=== PATIENT | female | born 1975 | race Caucasian/White ===

== ENCOUNTER → 2016-10-05 | Outpatient (CLI) | payer OTHER, MEDICARE ==
[~2016-10-05] MED LIST: ACCU-CHEK1 EACH MC; CEFDINIR300 MG PO; GLUCERNA1 EACH GT; HUMALOG MI100 UNIT/1 SQ; HUMALOG100 UNIT/1 SQ; LANTUS SOL100 UNIT/1 SQ; LEVEMIR100 UNIT/1 SQ; LIDODERM PATCH 51 EA TD; PHENERGAN 12.12.5 M1 PO; PHENERGAN 25 MG25 M1 PO; PROMETHAZINE HC25 M1 PO; ZANAFLEX4 MG PO
[2016-10-05 13:59] LABS: HEMOGLOBIN 12.2 gm/dl (12.3-15.3); RED BLOOD COUNT 5.21 M/UL (4.00-5.10); WHITE BLOOD COUNT 9.8 K/UL (4.5-11.0)
[2016-10-05 14:07] LABS: BUN/CREATININE RATIO 27 (0-10)
== END ==
LOC: LAB 12:53
PROVIDERS: Family Medicine
DX: E10.65 Type 1 diabetes mellitus with hyperglycemia (principal); K31.84 Gastroparesis; K85.90 Acute pancreatitis without necrosis or infection, unspecified
CPT/HCPCS: 36415; 80053; 83690; 85027

== ENCOUNTER → 2020-06-13 | Outpatient (CLI) | payer BC, MEDICARE ==
[~2020-06-13] MED LIST changes: +ATIVAN 1MG TABLE1 MG PO; +ATORVASTATIN CA40 MG PO; +AUGMENTIN250 MG/5 M PO; +BASAGLAR K100 UNIT/1 SC; +CATAPRES 0.1MG0.1 MG PO; +CHRONULAC20 GM/30 M PO; +DIPHENHYDR50 MG/1 M1 INJ; +DIPHENHYDR50 MG/1 M1 IV; +DURAGESIC1 EAC3 TD; +HEPARIN LO IV; +HUMALOG100 UNIT/2 SC; +HYDROCODON-ACE1 EAC2 PO; +METOPROLOL TART25 MG PO; +NARCAN INH; +NEURONTIN 300300 MG PO; +NEURONTIN600 MG GT; +NOVOLOG100 UNIT/1 SQ; +PERCOCET 7.5-31 EACH PO; +PHENERGAN 12.12.5 MG PR; +PHENERGAN IM25 MG/ML IV; +PHENERGAN6.25 MG/5 PO; +PLAVIX 75 MG TA75 MG PO; +QUETIAPINE FUMA50 MG PO; +SENNA LAX8.6 MG PO; +SENOKOT8.6 MG PO; +SODIUM CL 0.91000 ML INJ; +TIZANIDINE HCL6 MG PO; +ZANAFLEX4 MG GT; -ZANAFLEX4 MG PO
== END ==
LOC: LAB 16:36
DX: Z20.822 Contact with and (suspected) exposure to COVID-19 (principal); E10.43 Type 1 diabetes mellitus with diabetic autonomic (poly)neuropathy
CPT/HCPCS: U0003

== ENCOUNTER 2020-07-18 19:46 | Emergency (ER) | payer BC ==
[~2020-07-18 19:46] MED LIST changes: -ATORVASTATIN CA40 MG PO; -BASAGLAR K100 UNIT/1 SC; -CATAPRES 0.1MG0.1 MG PO; -DIPHENHYDR50 MG/1 M1 IV; -HEPARIN LO IV; -HYDROCODON-ACE1 EAC2 PO; -METOPROLOL TART25 MG PO; -PERCOCET 7.5-31 EACH PO; -PHENERGAN IM25 MG/ML IV; -PLAVIX 75 MG TA75 MG PO; -QUETIAPINE FUMA50 MG PO; -SENNA LAX8.6 MG PO; -TIZANIDINE HCL6 MG PO
[2020-07-18 21:24] LABS: HEMOGLOBIN 9.7 gm/dl (12.3-15.3); RED BLOOD COUNT 3.79 M/UL (4.00-5.10); WHITE BLOOD COUNT 8.8 K/UL (4.5-11.0)
[2020-07-18 21:59] LABS: BUN/CREATININE RATIO 23 (0-10)
== END 2020-07-18 22:36 | disposition home or self-care (01) ==
LOC: ER1 19:46
PROVIDERS: Family Medicine
DX: R07.9 Chest pain, unspecified (principal); E11.43 Type 2 diabetes mellitus with diabetic autonomic (poly)neuropathy; K31.84 Gastroparesis; Z91.041 Radiographic dye allergy status; Z88.8 Allergy status to other drugs, medicaments and biological substances; Z88.5 Allergy status to narcotic agent; Z79.01 Long term (current) use of anticoagulants
CPT/HCPCS: 71045; 80053; 82550; 82553; 83874; 84484; 85025; 93005; 99285; J2997

== ENCOUNTER 2020-11-04 12:40 | Inpatient (IN) | payer BC ==
[~2020-11-04] VITALS: Ht 152.4 cm; Wt 74.8 kg
[2020-11-04 13:21] LABS: HEMOGLOBIN 12.8 gm/dl (12.3-15.3); RED BLOOD COUNT 4.94 M/UL (4.00-5.10); WHITE BLOOD COUNT 16.3 K/UL (4.5-11.0)
[2020-11-04 13:43] LABS: BUN/CREATININE RATIO 22 (0-10)
[2020-11-04] MEDS ORDERED: TIZANIDINE HCL6 MG PO (15:33)
[2020-11-04] MEDS ORDERED: DIPHENHYDR50 MG/1 M1 IV (15:33)
[2020-11-04] MEDS ORDERED: PHENERGAN IM25 MG/ML IV (15:34)
[2020-11-04] MEDS ORDERED: METOPROLOL TART25 MG PO (15:35)
[2020-11-04] MEDS ORDERED: QUETIAPINE FUMA50 MG PO (15:36)
[2020-11-04] MEDS ORDERED: BASAGLAR K100 UNIT/1 SC (15:36)
[2020-11-04] MEDS ORDERED: ATORVASTATIN CA40 MG PO ×2 (15:38→15:42)
[2020-11-04] MEDS ORDERED: PLAVIX 75 MG TA75 MG PO (15:40)
[2020-11-04] MEDS ORDERED: HEPARIN LO IV (15:46)
--- NOTE | 2020-11-04 17:38 | NUR ---
PT ARRIVED TO ROOM 6103 AT 17:38, HR IN THE 140'S, BARREL ROLLER STATES MD ANN, PT ON BSC AT THIS TIME
[2020-11-05 07:25] LABS: HEMOGLOBIN 12.2 gm/dl (12.3-15.3); RED BLOOD COUNT 4.74 M/UL (4.00-5.10)
[2020-11-05 07:56] LABS: BUN/CREATININE RATIO 17 (0-10)
[2020-11-06 02:32] LABS: HEMOGLOBIN 9.4 gm/dl (12.3-15.3); RED BLOOD COUNT 3.68 M/UL (4.00-5.10); WHITE BLOOD COUNT 6.8 K/UL (4.5-11.0)
[2020-11-06 02:46] LABS: BUN/CREATININE RATIO 19 (0-10)
--- NOTE | 2020-11-07 10:47 | NUR ---
HAD LONG DISCUSSION WITH PATIENT CONCERNING PAIN MEDICATION. PT IS APPROACHING DC AND CONTINUES TO TAKE DILAUDID. EXPLAINED TO PATIENT THE NEED TO TRY PO PAIN MEDS PRIOR TO DC TO KNOW IF THEY ARE EFFECTIVE FOR HER PAIN. PATIENT BECAME VERY UPSET AND INSISTED ON KEEPING IV PAIN MEDICATIONS. ONCE AGAIN EXPLAINED TO PATIENT THAT SHE CAN NOT TAKE IV PAIN MEDICATION AT HOME AND THE IMPORTANCE OF FINDING A PO PAIN MEDICATION THAT WILL WORK AT HOME FOR HER. MD MADE AWARE OF IV PAIN MEDICATION AND POSSIBLE DC TOMORROW OR MONDAY. IV MEDICATION DC'D AND PO MEDS ORDERED.
--- NOTE | 2020-11-07 14:35 | NUR ---
PT REQUESTING PAIN MEDICATION. HYDROCODONE TAKEN INTO ROOM PER NEW ORDER. PT UPSET AND REFUSING TO TAKE MEDICATION. EXPLAINED, AGAIN, THE NEED TO TRY PO MEDICATIONS PRIOR TO DC TO MAKE SURE THAT THE MEDICATION WILL MANAGE HER PAIN. PT AGREED TO TAKE MEDICATION. SHE STATES THAT "IT WON'T WORK" BUT WILL TAKE IT TO "PROVE THAT IT WON'T"
[2020-11-09 06:04] LABS: HEMOGLOBIN 10.9 gm/dl (12.3-15.3); RED BLOOD COUNT 4.19 M/UL (4.00-5.10); WHITE BLOOD COUNT 5.1 K/UL (4.5-11.0)
[2020-11-09 06:34] LABS: BUN/CREATININE RATIO 29 (0-10)
[2020-11-10] MEDS ORDERED: HYDROCODON-ACE1 EAC2 PO (11:52)
[2020-11-10] MEDS ORDERED: SENNA LAX8.6 MG PO (11:52)
[2020-11-10] MEDS ORDERED: CATAPRES 0.1MG0.1 MG PO (11:52)
[2020-11-10] MEDS ORDERED: PERCOCET 7.5-31 EACH PO (11:55)
== END 2020-11-10 16:34 | disposition home or self-care (01) | DRG 74 ==
LOC: ER1 12:40 → MED SURG 4 15:16 → CDU 15:16 → PROG CARE 18:00 → MED SURG 4 11-06 16:31
PROVIDERS: Emergency Medicine; Physician Assistant Medical; ADMIT Internal Medicine
DX: E10.43 Type 1 diabetes mellitus with diabetic autonomic (poly)neuropathy (principal); I50.22 Chronic systolic (congestive) heart failure; R65.10 Systemic inflammatory response syndrome (SIRS) of non-infectious origin without acute organ dysfunction; F11.93 Opioid use, unspecified with withdrawal; I13.0 Hypertensive heart and chronic kidney disease with heart failure and stage 1 through stage 4 chronic kidney disease, or unspecified chronic kidney disease; K86.1 Other chronic pancreatitis; K31.84 Gastroparesis; R00.0 Tachycardia, unspecified; K59.00 Constipation, unspecified; G40.909 Epilepsy, unspecified, not intractable, without status epilepticus; G89.29 Other chronic pain; N18.9 Chronic kidney disease, unspecified; D72.829 Elevated white blood cell count, unspecified; R07.9 Chest pain, unspecified; D50.9 Iron deficiency anemia, unspecified; Z90.49 Acquired absence of other specified parts of digestive tract; Z95.0 Presence of cardiac pacemaker; Z79.4 Long term (current) use of insulin; Z90.710 Acquired absence of both cervix and uterus; Z88.6 Allergy status to analgesic agent; Z91.09 Other allergy status, other than to drugs and biological substances; Z80.1 Family history of malignant neoplasm of trachea, bronchus and lung; Z80.41 Family history of malignant neoplasm of ovary
CPT/HCPCS: 36415; 70450; 71045; 80048; 80053; 81001; 82550; 82553; 82962; 83036; 83605; 83690; 83735; 83874; 83880; 84439; 84443; 84484; 85025; 85027; 85610; 85730; 87040; 93005; 96374; 96375; 96376; 97116-GP-CQ; 97161; 99285; J0360; J0692; J1170; J1200; J1642; J1644; J1650; J1940; J2550; J7030; U0002

== ENCOUNTER → 2020-12-29 | Outpatient (CLI) | payer BC, MEDICARE ==
[~2020-12-29] MED LIST changes: +ATORVASTATIN CA40 MG PO; +AUGMENTIN 875-1 EACH PO; +BASAGLAR K100 UNIT/1 SC; +CATAPRES 0.1MG0.1 MG PO; +DIPHENHYDR IV; +DIPHENHYDR50 MG/1 M1 IV; +EPIFOAM FOAM10 GM TOP; +HEPARIN LO IV; +HYDROCODON-ACE1 EAC2 PO; +HYDROCODON-ACE1 EAC4 PEG; +LIPITOR40 MG PO; +MAGNESIUM CITR296 ML PO; +METOPROLOL TART25 MG PO; +MIRALAX17 GM PO; +MYCOSTATIN100000 UTS PO; +PERCOCET 7.5-31 EACH PO; +PHENERGAN IM25 MG/ML IV; +PLAVIX 75 MG TA75 MG PO; +QUETIAPINE FUMA50 MG PO; +SENNA LAX8.6 MG PO; +SENNA8.6 MG PO; +SODIUM CL 0.91000 ML IV; +TIZANIDINE HCL6 MG PO
== END ==
LOC: OPSV 12:00
DX: R11.2 Nausea with vomiting, unspecified (principal); K31.84 Gastroparesis
CPT/HCPCS: G0463

== ENCOUNTER 2021-01-03 07:49 | Inpatient (IN) | payer BC, MEDICARE ==
[~2021-01-03] VITALS: Ht 165.1 cm; Wt 77.1 kg
[~2021-01-03 07:49] MED LIST changes: -AUGMENTIN 875-1 EACH PO; -DIPHENHYDR IV; -EPIFOAM FOAM10 GM TOP; -HYDROCODON-ACE1 EAC4 PEG; -LIPITOR40 MG PO; -MAGNESIUM CITR296 ML PO; -MIRALAX17 GM PO; -MYCOSTATIN100000 UTS PO; -SENNA8.6 MG PO; -SODIUM CL 0.91000 ML IV
[2021-01-03 09:38] LABS: HEMOGLOBIN 12.4 gm/dl (12.3-15.3); RED BLOOD COUNT 4.66 M/UL (4.00-5.10); WHITE BLOOD COUNT 12.9 K/UL (4.5-11.0)
[2021-01-03 09:57] LABS: BUN/CREATININE RATIO 22 (0-10)
[2021-01-04 02:52] LABS: HEMOGLOBIN 10.8 gm/dl (12.3-15.3); WHITE BLOOD COUNT 14.4 K/UL (4.5-11.0)
[2021-01-04 02:56] LABS: RED BLOOD COUNT 4.07 M/UL (4.00-5.10)
[2021-01-04 03:17] LABS: BUN/CREATININE RATIO 16 (0-10)
[2021-01-04] MEDS ORDERED: DIPHENHYDR IV (16:05)
[2021-01-04] MEDS ORDERED: PHENERGAN IM25 MG/ML IV (16:06)
[2021-01-04] MEDS ORDERED: SODIUM CL 0.91000 ML IV (16:09)
[2021-01-04] MEDS ORDERED: CATAPRES 0.1MG0.1 MG PO (16:10)
[2021-01-04] MEDS ORDERED: SENNA8.6 MG PO (16:10)
[2021-01-04] MEDS ORDERED: LIPITOR40 MG PO (16:11)
[2021-01-04] MEDS ORDERED: MIRALAX17 GM PO (16:12)
[2021-01-04] MEDS ORDERED: CHRONULAC20 GM/30 M PO (16:13)
[2021-01-04] MEDS ORDERED: MAGNESIUM CITR296 ML PO (16:13)
[2021-01-04] MEDS ORDERED: MYCOSTATIN100000 UTS PO (16:15)
--- NOTE | 2021-01-05 06:43 | NUR ---
PATIENT APPEARS VERY ANXIOUS AND HAS GENERALIZED SHAKING. SHE REPORTS SHE IS IN ALOT OF PAIN, AND IS SICK TO HER STOMACH. PAIN MEDS GIVEN, PHENERGAN GIVEN, AND BP NOTED TO BE HIGH ON MONITOR. CHECKED BP MANUALLY 160/100. GAVE CLONIDINE PER SCHEDULE AND PRN HYDRALAZINE. NOTIFIED MT TOMPKINS OF PTS BP.
[2021-01-05 09:42] LABS: HEMOGLOBIN 9.6 gm/dl (12.3-15.3)
[2021-01-05 09:51] LABS: RED BLOOD COUNT 3.63 M/UL (4.00-5.10); WHITE BLOOD COUNT 7.3 K/UL (4.5-11.0)
[2021-01-05 10:20] LABS: BUN/CREATININE RATIO 22 (0-10)
[2021-01-06 03:20] LABS: HEMOGLOBIN 8.5 gm/dl (12.3-15.3); WHITE BLOOD COUNT 5.7 K/UL (4.5-11.0)
[2021-01-06 03:23] LABS: RED BLOOD COUNT 3.16 M/UL (4.00-5.10)
[2021-01-06 03:47] LABS: BUN/CREATININE RATIO 15 (0-10)
[2021-01-07 03:01] LABS: WHITE BLOOD COUNT 7.1 K/UL (4.5-11.0)
[2021-01-07 03:06] LABS: RED BLOOD COUNT 4.13 M/UL (4.00-5.10)
[2021-01-07 03:36] LABS: BUN/CREATININE RATIO 14 (0-10)
[2021-01-08 03:47] LABS: BUN/CREATININE RATIO 17 (0-10)
[2021-01-09 03:36] LABS: HEMOGLOBIN 9.6 gm/dl (12.3-15.3); RED BLOOD COUNT 3.73 M/UL (4.00-5.10); WHITE BLOOD COUNT 5.5 K/UL (4.5-11.0)
[2021-01-09 03:58] LABS: BUN/CREATININE RATIO 14 (0-10)
[2021-01-10 08:43] LABS: BUN/CREATININE RATIO 28 (0-10)
[2021-01-10] MEDS ORDERED: HYDROCODON-ACE1 EAC4 PEG (13:04)
[2021-01-10] MEDS ORDERED: AUGMENTIN 875-1 EACH PO (13:04)
[2021-01-10] MEDS ORDERED: EPIFOAM FOAM10 GM TOP (13:04)
[2021-01-10] MEDS ORDERED: BASAGLAR K100 UNIT/1 SC (13:04)
== END 2021-01-10 17:25 | disposition home or self-care (01) | DRG 871 ==
LOC: ER1 07:49 → CDU 10:55 → PROG CARE 10:55 → MED SURG 4 01-08 17:59
PROVIDERS: Emergency Medicine; Internal Medicine; Physician Assistant; ADMIT Internal Medicine
DX: A41.9 Sepsis, unspecified organism (principal); E43 Unspecified severe protein-calorie malnutrition; E87.2 Acidosis; K86.1 Other chronic pancreatitis; I13.0 Hypertensive heart and chronic kidney disease with heart failure and stage 1 through stage 4 chronic kidney disease, or unspecified chronic kidney disease; Z20.822 Contact with and (suspected) exposure to COVID-19; E10.43 Type 1 diabetes mellitus with diabetic autonomic (poly)neuropathy; I25.10 Atherosclerotic heart disease of native coronary artery without angina pectoris; N18.9 Chronic kidney disease, unspecified; I16.0 Hypertensive urgency; I50.9 Heart failure, unspecified; K64.9 Unspecified hemorrhoids; E86.0 Dehydration; G40.909 Epilepsy, unspecified, not intractable, without status epilepticus; E87.8 Other disorders of electrolyte and fluid balance, not elsewhere classified; K04.7 Periapical abscess without sinus; K31.84 Gastroparesis; E10.22 Type 1 diabetes mellitus with diabetic chronic kidney disease; K02.9 Dental caries, unspecified; K59.00 Constipation, unspecified; Z79.02 Long term (current) use of antithrombotics/antiplatelets; Z68.28 Body mass index [BMI] 28.0-28.9, adult; I25.2 Old myocardial infarction; Z88.6 Allergy status to analgesic agent; Z88.8 Allergy status to other drugs, medicaments and biological substances; Z90.49 Acquired absence of other specified parts of digestive tract; Z90.710 Acquired absence of both cervix and uterus; Z80.9 Family history of malignant neoplasm, unspecified; Z79.4 Long term (current) use of insulin
CPT/HCPCS: 36415; 71045; 80048; 80053; 81001; 82009; 82550; 82553; 82962; 83605; 83690; 83735; 83874; 84100; 84439; 84443; 84484; 85025; 85027; 87040; 87086; 93005; 96374; 96375; 96376; 97110; 97116; 97116-GP-CQ; 97161; 99285; J0360; J1170; J1200; J1642; J2543; J2550; J7030; U0002

== ENCOUNTER → 2021-01-22 | Outpatient (CLI) | payer BC, MEDICARE ==
[~2021-01-22] MED LIST changes: +AUGMENTIN 875-1 EACH PO; +DIPHENHYDR IV; +EPIFOAM FOAM10 GM TOP; +HYDROCODON-ACE1 EAC4 PEG; +LIPITOR40 MG PO; +MAGNESIUM CITR296 ML PO; +MIRALAX17 GM PO; +MYCOSTATIN100000 UTS PO; +SENNA8.6 MG PO; +SODIUM CL 0.91000 ML IV
== END ==
LOC: OPSV 12:00
DX: R11.2 Nausea with vomiting, unspecified (principal); K31.84 Gastroparesis
CPT/HCPCS: G0463

== ENCOUNTER 2021-02-11 13:42 | Emergency (ER) | payer BC, MEDICARE ==
[2021-02-11 16:20] LABS: RED BLOOD COUNT 4.65 M/UL (4.00-5.10); WHITE BLOOD COUNT 5.8 K/UL (4.5-11.0)
[2021-02-11 16:39] LABS: BUN/CREATININE RATIO 15 (0-10)
== END 2021-02-12 00:35 | disposition home or self-care (01) ==
LOC: ER1 13:42
PROVIDERS: Physician Assistant
DX: U07.1 COVID-19 (principal); K94.23 Gastrostomy malfunction; E10.9 Type 1 diabetes mellitus without complications; I10 Essential (primary) hypertension; Z90.710 Acquired absence of both cervix and uterus; Z79.899 Other long term (current) drug therapy; Z90.49 Acquired absence of other specified parts of digestive tract
CPT/HCPCS: 80053; 81001; 83690; 85025; 96374; 96375; 96376; 99284; J1170; J1200; J2550; J7120; Q9967; U0002

== ENCOUNTER 2021-02-15 12:29 | Emergency (ER) | payer BC, MEDICARE ==
[2021-02-15 15:05] LABS: HEMOGLOBIN 12.4 gm/dl (12.3-15.3); RED BLOOD COUNT 4.91 M/UL (4.00-5.10); WHITE BLOOD COUNT 6.9 K/UL (4.5-11.0)
[2021-02-15 15:25] LABS: BUN/CREATININE RATIO 19 (0-10)
== END 2021-02-19 16:39 | disposition home or self-care (01) ==
LOC: ER1 12:29
PROVIDERS: Physician Assistant
DX: U07.1 COVID-19 (principal); E11.43 Type 2 diabetes mellitus with diabetic autonomic (poly)neuropathy; K31.84 Gastroparesis; I25.2 Old myocardial infarction; I11.0 Hypertensive heart disease with heart failure; I50.9 Heart failure, unspecified; Z88.5 Allergy status to narcotic agent; Z91.041 Radiographic dye allergy status; Z88.6 Allergy status to analgesic agent; Z90.49 Acquired absence of other specified parts of digestive tract
CPT/HCPCS: 71045; 80053; 81001; 82962; 85025; 96374; 96375; 96376; 99285; C9113; J1170; J1200; J1642; J2550

== ENCOUNTER → 2021-03-15 | Outpatient (CLI) | payer BC, MEDICARE | LOC: OPSV 15:00 | DX: K31.84 Gastroparesis (principal); R11.2 Nausea with vomiting, unspecified | CPT/HCPCS: 96523 ==

== ENCOUNTER 2021-04-24 16:53 | Inpatient (IN) | payer BC, MEDICARE ==
[~2021-04-24] VITALS: Ht 165.1 cm; Wt 74.8 kg
[2021-04-24 17:32] LABS: HEMOGLOBIN 12.2 gm/dl (12.3-15.3); RED BLOOD COUNT 4.64 M/UL (4.00-5.10); WHITE BLOOD COUNT 11.9 K/UL (4.5-11.0)
[2021-04-24 17:56] LABS: BUN/CREATININE RATIO 15 (0-10)
[2021-04-25] MEDS ORDERED: TRANSDERM-SCOP1 EACH TOP (00:02)
[2021-04-25 04:32] LABS: HEMOGLOBIN 10.8 gm/dl (12.3-15.3); RED BLOOD COUNT 4.18 M/UL (4.00-5.10)
[2021-04-25 04:34] LABS: WHITE BLOOD COUNT 8.2 K/UL (4.5-11.0)
[2021-04-25 04:46] LABS: BUN/CREATININE RATIO 13 (0-10)
[2021-04-26 11:09] LABS: HEMOGLOBIN 8.9 gm/dl (12.3-15.3)
[2021-04-26 11:16] LABS: RED BLOOD COUNT 3.51 M/UL (4.00-5.10); WHITE BLOOD COUNT 4.4 K/UL (4.5-11.0)
[2021-04-26 11:33] LABS: BUN/CREATININE RATIO 14 (0-10)
[2021-04-27 06:45] LABS: HEMOGLOBIN 8.4 gm/dl (12.3-15.3); RED BLOOD COUNT 3.38 M/UL (4.00-5.10); WHITE BLOOD COUNT 4.9 K/UL (4.5-11.0)
[2021-04-27 07:04] LABS: BUN/CREATININE RATIO 16 (0-10)
[2021-04-30 11:25] LABS: HEMOGLOBIN 9.5 gm/dl (12.3-15.3); RED BLOOD COUNT 3.67 M/UL (4.00-5.10); WHITE BLOOD COUNT 6.2 K/UL (4.5-11.0)
[2021-04-30 11:44] LABS: BUN/CREATININE RATIO 14 (0-10)
[2021-05-01 02:16] LABS: HEMOGLOBIN 9.9 gm/dl (12.3-15.3); RED BLOOD COUNT 3.88 M/UL (4.00-5.10); WHITE BLOOD COUNT 6.7 K/UL (4.5-11.0)
[2021-05-01 02:40] LABS: BUN/CREATININE RATIO 17 (0-10)
[2021-05-01 10:37] LABS: HEMOGLOBIN 9.7 gm/dl (12.3-15.3)
--- NOTE | 2021-05-01 18:27 | NUR ---
PATIENT NOTED TO BE THROWING UP VERY THICK EMESIS INTO BASIN WITH SOME BLOOD NOTED. RN NOTIFIED MD, NO NEW ORDERS NOTED AT PRESENT. PRN ANTIHISTAMINE ADMINISTERED WELL IV PAIN MEDICATIONS. BED LOCKED AND LOW. CALL LIGHT WITHIN REACH.
[2021-05-02 07:09] LABS: HEMOGLOBIN 9.6 gm/dl (12.3-15.3); RED BLOOD COUNT 3.75 M/UL (4.00-5.10); WHITE BLOOD COUNT 6.3 K/UL (4.5-11.0)
[2021-05-02 07:40] LABS: BUN/CREATININE RATIO 19 (0-10)
[2021-05-04 09:30] LABS: HEMOGLOBIN 9.7 gm/dl (12.3-15.3); RED BLOOD COUNT 3.83 M/UL (4.00-5.10)
[2021-05-04 10:02] LABS: BUN/CREATININE RATIO 19 (0-10)
--- NOTE | 2021-05-04 14:32 | NUR ---
RIAZ'Alicia ISOLATION PER PROVIDER AND MAYA REYES. PATIENT HAS NO COVID SYMPTOMS, AND HAD BEEN DIAGNOSED IN .
[2021-05-06 07:13] LABS: HEMOGLOBIN 9.5 gm/dl (12.3-15.3); RED BLOOD COUNT 3.72 M/UL (4.00-5.10); WHITE BLOOD COUNT 6.5 K/UL (4.5-11.0)
[2021-05-06 07:29] LABS: BUN/CREATININE RATIO 23 (0-10)
[2021-05-07] MEDS ORDERED: AUGMENTIN600 MG/5 M PO (15:46)
== END 2021-05-07 17:18 | disposition home or self-care (01) | DRG 872 ==
LOC: ER1 16:53 → CDU 22:29 → MED SURG 4 22:29
PROVIDERS: Internal Medicine; Student in an Organized Health Care Education/Training Program; ADMIT Internal Medicine
DX: A41.9 Sepsis, unspecified organism (principal); Z20.822 Contact with and (suspected) exposure to COVID-19; D62 Acute posthemorrhagic anemia; K92.2 Gastrointestinal hemorrhage, unspecified; N39.0 Urinary tract infection, site not specified; K04.7 Periapical abscess without sinus; G40.909 Epilepsy, unspecified, not intractable, without status epilepticus; E10.43 Type 1 diabetes mellitus with diabetic autonomic (poly)neuropathy; K31.84 Gastroparesis; F11.10 Opioid abuse, uncomplicated; K02.9 Dental caries, unspecified; K59.00 Constipation, unspecified; I10 Essential (primary) hypertension; E86.0 Dehydration; G89.4 Chronic pain syndrome; I16.0 Hypertensive urgency; Z79.4 Long term (current) use of insulin; Z51.5 Encounter for palliative care; I25.2 Old myocardial infarction; Z88.8 Allergy status to other drugs, medicaments and biological substances; Z88.6 Allergy status to analgesic agent; Z88.1 Allergy status to other antibiotic agents; Z91.041 Radiographic dye allergy status; Z88.5 Allergy status to narcotic agent; Z90.49 Acquired absence of other specified parts of digestive tract; Z95.0 Presence of cardiac pacemaker; Z80.41 Family history of malignant neoplasm of ovary
CPT/HCPCS: 36415; 70486; 70490; 71045; 80048; 80053; 81001; 82550; 82553; 82962; 83605; 83735; 83874; 83880; 84484; 85014; 85018; 85025; 85027; 85379; 86140; 87040; 93005; 96372; 96374; 96375; 96376; 97161; 99285; C9113; G0378; J0696; J1170; J1200; J1642; J1650; J1940; J2550; J7030; J7050; Q9967; U0002

== ENCOUNTER 2021-05-20 12:18 | Observation (INO) | payer BC, MEDICARE ==
[~2021-05-20] VITALS: Ht 165.1 cm; Wt 74.8 kg
[~2021-05-20 12:18] MED LIST changes: +AUGMENTIN600 MG/5 M PO; +TRANSDERM-SCOP1 EACH TOP
[2021-05-20 13:49] LABS: HEMOGLOBIN 11.5 gm/dl (12.3-15.3); RED BLOOD COUNT 4.51 M/UL (4.00-5.10); WHITE BLOOD COUNT 9.7 K/UL (4.5-11.0)
[2021-05-20 14:07] LABS: BUN/CREATININE RATIO 21 (0-10)
[2021-05-20] MEDS ORDERED: DIPHENHYDR50 MG/1 M1 INJ (17:53)
[2021-05-20] MEDS ORDERED: DIPHENHYDR50 MG/1 ML INJ (17:55)
[2021-05-21 06:23] LABS: HEMOGLOBIN 9.7 gm/dl (12.3-15.3); WHITE BLOOD COUNT 7.3 K/UL (4.5-11.0)
[2021-05-21 06:24] LABS: RED BLOOD COUNT 3.87 M/UL (4.00-5.10)
[2021-05-21 06:50] LABS: BUN/CREATININE RATIO 16 (0-10)
== END 2021-05-21 17:26 | disposition hospice, inpatient (51) ==
LOC: ER1 12:18 → CDU 16:01 → MED SURG 4 17:09
PROVIDERS: Physician Assistant Medical; Preventive Medicine Occupational Medicine; ADMIT Internal Medicine
DX: E10.43 Type 1 diabetes mellitus with diabetic autonomic (poly)neuropathy (principal); K31.84 Gastroparesis; K59.00 Constipation, unspecified; I16.0 Hypertensive urgency; G40.909 Epilepsy, unspecified, not intractable, without status epilepticus; I10 Essential (primary) hypertension; G89.4 Chronic pain syndrome; I25.2 Old myocardial infarction; Z20.822 Contact with and (suspected) exposure to COVID-19; Z87.19 Personal history of other diseases of the digestive system; Z93.1 Gastrostomy status; Z88.5 Allergy status to narcotic agent; Z88.6 Allergy status to analgesic agent; Z88.8 Allergy status to other drugs, medicaments and biological substances; Z91.041 Radiographic dye allergy status; Z91.19 Patient's noncompliance with other medical treatment and regimen; Z79.02 Long term (current) use of antithrombotics/antiplatelets; Z79.899 Other long term (current) drug therapy; Z87.891 Personal history of nicotine dependence
CPT/HCPCS: 36415; 71045; 80048; 80053; 80307; 81001; 82009; 82962; 83690; 83735; 85025; 85027; 85610; 85652; 85730; 86140; 87086; 93005; 96374; 96375; 96376; 99285; C9113; G0378; J0780; J1170; J1200; J2550; U0002

== ENCOUNTER → 2021-05-25 | Outpatient (CLI) | payer BC, MEDICARE ==
[~2021-05-25] MED LIST changes: +DIPHENHYDR50 MG/1 ML INJ
== END ==
LOC: OPSV 12:59
DX: Z45.2 Encounter for adjustment and management of vascular access device (principal); K31.84 Gastroparesis; R11.2 Nausea with vomiting, unspecified
CPT/HCPCS: 96523

== ENCOUNTER 2021-06-16 15:44 | Inpatient (IN) | payer BC, MEDICARE ==
[~2021-06-16] VITALS: Ht 165.1 cm; Wt 74.8 kg
[~2021-06-16 15:44] MED LIST changes: -DIPHENHYDR50 MG/1 ML INJ
[2021-06-16 18:54] LABS: HEMOGLOBIN 11.1 gm/dl (12.3-15.3); RED BLOOD COUNT 4.45 M/UL (4.00-5.10); WHITE BLOOD COUNT 7.3 K/UL (4.5-11.0)
[2021-06-16 19:13] LABS: BUN/CREATININE RATIO 18 (0-10)
[2021-06-17] MEDS ORDERED: DIPHENHYDR50 MG/1 ML INJ (17:55)
[2021-06-17] MEDS ORDERED: ZANAFLEX4 MG PO (19:30)
[2021-06-18 05:09] LABS: HEMOGLOBIN 9.6 gm/dl (12.3-15.3)
[2021-06-18 05:21] LABS: BUN/CREATININE RATIO 12 (0-10)
[2021-06-18 05:38] LABS: RED BLOOD COUNT 3.89 M/UL (4.00-5.10); WHITE BLOOD COUNT 9.5 K/UL (4.5-11.0)
== END 2021-06-18 14:00 | disposition home or self-care (01) | DRG 74 ==
LOC: ER1 15:44 → CDU 06-17 02:19 → 3 EAST 06-17 14:49
PROVIDERS: Internal Medicine; Physician Assistant; ADMIT Internal Medicine
DX: E11.43 Type 2 diabetes mellitus with diabetic autonomic (poly)neuropathy (principal); K31.84 Gastroparesis; G40.909 Epilepsy, unspecified, not intractable, without status epilepticus; K04.7 Periapical abscess without sinus; K59.00 Constipation, unspecified; G89.29 Other chronic pain; Z20.822 Contact with and (suspected) exposure to COVID-19; I50.9 Heart failure, unspecified; I25.2 Old myocardial infarction; Z90.710 Acquired absence of both cervix and uterus; Z90.49 Acquired absence of other specified parts of digestive tract; Z98.890 Other specified postprocedural states; Z88.8 Allergy status to other drugs, medicaments and biological substances; Z51.5 Encounter for palliative care; Z95.1 Presence of aortocoronary bypass graft
CPT/HCPCS: 36415; 80053; 81001; 82150; 82962; 83036; 83605; 83690; 83735; 84100; 85025; 87040; 96374; 96375; 96376; 99285; G0378; J1170; J1200; J1642; J1650; J2212; J2550; J2997; J3010; J7030; U0002

== ENCOUNTER 2021-07-11 13:22 | Inpatient (IN) | payer BC, MEDICARE ==
[~2021-07-11] VITALS: Ht 195.6 cm; Wt 72.6 kg
[~2021-07-11 13:22] MED LIST changes: +DIPHENHYDR50 MG/1 ML INJ; +ZANAFLEX4 MG PO
[2021-07-11 16:51] LABS: RED BLOOD COUNT 4.43 M/UL (4.00-5.10); WHITE BLOOD COUNT 11.2 K/UL (4.5-11.0)
[2021-07-11 17:04] LABS: BUN/CREATININE RATIO 18 (0-10)
[2021-07-12 04:22] LABS: HEMOGLOBIN 10.5 gm/dl (12.3-15.3); RED BLOOD COUNT 4.22 M/UL (4.00-5.10)
[2021-07-12 04:54] LABS: WHITE BLOOD COUNT 17.4 K/UL (4.5-11.0)
[2021-07-12 04:57] LABS: BUN/CREATININE RATIO 19 (0-10)
[2021-07-12] MEDS ORDERED: DIPHENHYDR50 MG/1 M1 IV (12:12)
[2021-07-12] MEDS ORDERED: ZANAFLEX 4 MG TA4 MG PO (12:13)
[2021-07-12] MEDS ORDERED: OMEPRAZOLE20 MG PO (12:14)
[2021-07-14 04:27] LABS: HEMOGLOBIN 8.7 gm/dl (12.3-15.3)
[2021-07-14 04:42] LABS: RED BLOOD COUNT 3.62 M/UL (4.00-5.10); WHITE BLOOD COUNT 7.2 K/UL (4.5-11.0)
[2021-07-14 05:12] LABS: BUN/CREATININE RATIO 29 (0-10)
--- NOTE | 2021-07-14 19:14 | NUR ---
called ct results to dr goodman. no new orders noted. will continue to monitor.
--- NOTE | 2021-07-14 23:33 | NUR ---
BP: 84/52. NOTIFIED MD AND RECIEVED ORDERS. WILL CONTINUE TO MONITOR.
--- NOTE | 2021-07-15 14:17 | NUR ---
1317-PT REPORTED TO NURSE AND TECH THAT HER WAS VERBALLY ABUSIVE AT TIMES. STATES SHE DID NOT WANT TO TALK ABOUT IT AND WANTED TO GO HOME AT TIME OF DISCHARGE. PT STATES SHE DOES NOT WANT REPORTED.
--- NOTE | 2021-07-16 16:22 | NUR ---
1623-NOTIFIED CRITICAL GLUCOSE 443. DR DUNHAM ORDERED 10 UNITS HUMALOG
[2021-07-19 08:26] LABS: HEMOGLOBIN 10.3 gm/dl (12.3-15.3); RED BLOOD COUNT 4.17 M/UL (4.00-5.10); WHITE BLOOD COUNT 5.9 K/UL (4.5-11.0)
[2021-07-19 09:03] LABS: BUN/CREATININE RATIO 20 (0-10)
[2021-07-20 12:54] LABS: HEMOGLOBIN 9.8 gm/dl (12.3-15.3)
[2021-07-20 12:57] LABS: WHITE BLOOD COUNT 7.6 K/UL (4.5-11.0)
[2021-07-20 13:13] LABS: BUN/CREATININE RATIO 23 (0-10)
[2021-07-21 09:21] LABS: HEMOGLOBIN 9.5 gm/dl (12.3-15.3); RED BLOOD COUNT 3.89 M/UL (4.00-5.10)
[2021-07-21 09:22] LABS: WHITE BLOOD COUNT 15.3 K/UL (4.5-11.0)
[2021-07-21 09:46] LABS: BUN/CREATININE RATIO 24 (0-10)
--- NOTE | 2021-07-22 05:44 | NUR ---
PER PT REQUEST, ICE PACK GIVEN AT 0200 07/22/21 AND THEN A SECOND ICE PACK GIVEN AT 0540 07/22/21. PT USING ON STOMACH FOR RELIEF. DAYSHIFT WILL BE MADE AWARE.
[2021-07-22 05:48] LABS: HEMOGLOBIN 8.9 gm/dl (12.3-15.3); RED BLOOD COUNT 3.65 M/UL (4.00-5.10); WHITE BLOOD COUNT 12.7 K/UL (4.5-11.0)
[2021-07-22 06:07] LABS: BUN/CREATININE RATIO 21 (0-10)
[2021-07-23 04:46] LABS: HEMOGLOBIN 8.3 gm/dl (12.3-15.3); RED BLOOD COUNT 3.42 M/UL (4.00-5.10)
[2021-07-23 04:55] LABS: BUN/CREATININE RATIO 18 (0-10)
[2021-07-23 05:22] LABS: WHITE BLOOD COUNT 6.3 K/UL (4.5-11.0)
--- NOTE | 2021-07-23 18:02 | NUR ---
PT HAS STATED SHE HURTS ALL THE TIME AND THIS IS NO WAY TO LIVE. SHE HAS RECEIVED DILAUDID EVERY 3 HOURS REQUESTED FOR PAIN. HAS REQUESTED TO LEAVE IV FLUIDS OFF DUE TO FEELING LIKE IT IS CAUSING HER SWELLING.
[2021-07-24 10:12] LABS: HEMOGLOBIN 8.5 gm/dl (12.3-15.3); RED BLOOD COUNT 3.47 M/UL (4.00-5.10)
[2021-07-24 10:20] LABS: WHITE BLOOD COUNT 7.9 K/UL (4.5-11.0)
[2021-07-24 10:39] LABS: BUN/CREATININE RATIO 14 (0-10)
--- NOTE | 2021-07-24 10:56 | NUR ---
incentive spirometer given pt verbalized and demonstrated understasndin
[2021-07-25 06:47] LABS: HEMOGLOBIN 8.3 gm/dl (12.3-15.3); RED BLOOD COUNT 3.49 M/UL (4.00-5.10); WHITE BLOOD COUNT 6.8 K/UL (4.5-11.0)
[2021-07-25 06:55] LABS: BUN/CREATININE RATIO 16 (0-10)
[2021-07-26 07:59] LABS: RED BLOOD COUNT 3.66 M/UL (4.00-5.10)
[2021-07-26 08:29] LABS: BUN/CREATININE RATIO 9 (0-10)
--- NOTE | 2021-07-26 12:53 | NUR ---
NOTIFIED SURGERY OF [place] ORDER THAT WAS PLACED APPROX 5 MINUTES AFTER PT HAD ALREADY LEFT MY FLOOR FOR SURGERY. SURGERY STATES THEY WILL CALL RAY AND TELL HER.
--- NOTE | 2021-07-26 16:11 | NUR ---
WHEN PT. CAME TO FLOOR AFTER SURGERY, PT VOMITING, GAGGING AND LARGE AMOUNT OF BLOOD IN MOUTH. SURGERY NURSE AND WATER TAXI FERRY OPERATOR CALLED AND THEY CAME BACK TO FLOOR AND ASSISTED. PHENERGAN GIVEN TO PT AND PT GIVEN MOIST GAUZE TO BITE ON AND ALSO WAS TOLD BY DR. PATRICK TO EMPTY HER GASTROPARESIS G-TUBE PORT TO GRAVITY VIA F/C. EMPTIED APPROX 120CC AND DISCONTINUED AFTER APPROX 1 HR.
[2021-07-27 05:38] LABS: HEMOGLOBIN 8.2 gm/dl (12.3-15.3); RED BLOOD COUNT 3.38 M/UL (4.00-5.10); WHITE BLOOD COUNT 8.2 K/UL (4.5-11.0)
[2021-07-27 05:58] LABS: BUN/CREATININE RATIO 13 (0-10)
[2021-07-28] MEDS ORDERED: POLYETHYLENE GL17 GM PO (12:27)
[2021-07-28] MEDS ORDERED: HUMALOG 10100 UNITS/ SC (12:51)
[2021-07-28] MEDS ORDERED: LANTUS INS100 UTS/M1 SQ (12:51)
[2021-07-29] MEDS ORDERED: LEVEMIR FL100 UNIT/1 SQ (09:01)
[2021-07-30] MEDS ORDERED: LEVEMIR FL100 UNIT/1 SQ (17:23)
== END 2021-07-29 14:36 | disposition home health service (06) | DRG 73 ==
LOC: ER1 13:22 → M/S 21:34 → CDU 21:34 → M/S 07-12 14:44
PROVIDERS: Internal Medicine; Physician Assistant Medical; Surgery; ADMIT Emergency Medicine
PROC: 0DJ08ZZ Inspection of Upper Intestinal Tract, Via Natural or Artificial Opening Endoscopic (ICD-10-PCS; principal; 2021-07-20 09:29)
DX: E10.43 Type 1 diabetes mellitus with diabetic autonomic (poly)neuropathy (principal); J69.0 Pneumonitis due to inhalation of food and vomit; E44.0 Moderate protein-calorie malnutrition; Z68.1 Body mass index [BMI] 19.9 or less, adult; Z20.822 Contact with and (suspected) exposure to COVID-19; K86.1 Other chronic pancreatitis; I10 Essential (primary) hypertension; K59.00 Constipation, unspecified; Z93.1 Gastrostomy status; D63.8 Anemia in other chronic diseases classified elsewhere; D55.9 Anemia due to enzyme disorder, unspecified; K04.7 Periapical abscess without sinus; G40.909 Epilepsy, unspecified, not intractable, without status epilepticus; K02.9 Dental caries, unspecified; N83.201 Unspecified ovarian cyst, right side; Z79.4 Long term (current) use of insulin; S03.02XA Dislocation of jaw, left side, initial encounter; I25.2 Old myocardial infarction; I25.10 Atherosclerotic heart disease of native coronary artery without angina pectoris; Z90.49 Acquired absence of other specified parts of digestive tract; Z90.710 Acquired absence of both cervix and uterus; Z80.49 Family history of malignant neoplasm of other genital organs; Z88.5 Allergy status to narcotic agent; Z09 Encounter for follow-up examination after completed treatment for conditions other than malignant neoplasm; Z88.1 Allergy status to other antibiotic agents; Z91.041 Radiographic dye allergy status
CPT/HCPCS: 36415; 70450; 70486; 71045; 80048; 80053; 81001; 82962; 83605; 83690; 84484; 85025; 85027; 87086; 93005; 96374; 96375; 96376; 99284; C9113; J0295; J0360; J1170; J1200; J1335; J1650; J2001; J2060; J2250; J2550; J2704; J2710; J2997; J3010; J7030; J7120; U0002

== ENCOUNTER 2021-08-16 13:55 | Inpatient (IN) | payer BC, MEDICARE ==
[~2021-08-16] VITALS: Ht 172.7 cm; Wt 76.9 kg
[~2021-08-16 13:55] MED LIST changes: +HUMALOG 10100 UNITS/ SC; +LANTUS INS100 UTS/M1 SQ; +LEVEMIR FL100 UNIT/1 SQ; +OMEPRAZOLE20 MG PO; +POLYETHYLENE GL17 GM PO; +ZANAFLEX 4 MG TA4 MG PO
[2021-08-16 15:56] LABS: HEMOGLOBIN 11.8 gm/dl (12.3-15.3); RED BLOOD COUNT 5.07 M/UL (4.00-5.10); WHITE BLOOD COUNT 14.7 K/UL (4.5-11.0)
[2021-08-16 16:28] LABS: BUN/CREATININE RATIO 12 (0-10)
[2021-08-17] MEDS ORDERED: TIZANIDINE HCL4 MG PO (02:20)
[2021-08-17 09:35] LABS: HEMOGLOBIN 9.4 gm/dl (12.3-15.3); RED BLOOD COUNT 4.02 M/UL (4.00-5.10); WHITE BLOOD COUNT 33.8 K/UL (4.5-11.0)
[2021-08-17 09:42] LABS: BUN/CREATININE RATIO 22 (0-10)
[2021-08-17] MEDS ORDERED: LIPITOR40 MG PO (10:31)
[2021-08-17] MEDS ORDERED: MIRALAX17 GM PO (10:31)
[2021-08-17] MEDS ORDERED: PLAVIX75 MG PO (10:32)
[2021-08-17] MEDS ORDERED: CHRONULAC20 GM/30 M PO (10:34)
[2021-08-17] MEDS ORDERED: BASAGLAR K100 UNIT/1 SQ (14:15)
[2021-08-18 08:31] LABS: HEMOGLOBIN 8.1 gm/dl (12.3-15.3)
[2021-08-18 08:33] LABS: RED BLOOD COUNT 3.42 M/UL (4.00-5.10); WHITE BLOOD COUNT 18.2 K/UL (4.5-11.0)
[2021-08-18 09:06] LABS: BUN/CREATININE RATIO 20 (0-10)
[2021-08-19 04:15] LABS: HEMOGLOBIN 7.4 gm/dl (12.3-15.3); RED BLOOD COUNT 3.2 M/UL (4.00-5.10)
[2021-08-19 04:16] LABS: WHITE BLOOD COUNT 12.6 K/UL (4.5-11.0)
[2021-08-19 04:57] LABS: BUN/CREATININE RATIO 20 (0-10)
[2021-08-19 17:30] LABS: HEMOGLOBIN 8.1 gm/dl (12.3-15.3)
[2021-08-20 02:18] LABS: RED BLOOD COUNT 3.43 M/UL (4.00-5.10); WHITE BLOOD COUNT 10.7 K/UL (4.5-11.0)
--- NOTE | 2021-08-20 13:42 | NUR ---
PT ON TELEHEALTH COMP FOR OLOP EVAL
[2021-08-21 03:06] LABS: HEMOGLOBIN 8.3 gm/dl (12.3-15.3); RED BLOOD COUNT 3.52 M/UL (4.00-5.10); WHITE BLOOD COUNT 9.1 K/UL (4.5-11.0)
[2021-08-21 03:36] LABS: BUN/CREATININE RATIO 19 (0-10)
[2021-08-22 02:25] LABS: HEMOGLOBIN 8.7 gm/dl (12.3-15.3); RED BLOOD COUNT 3.64 M/UL (4.00-5.10); WHITE BLOOD COUNT 7.6 K/UL (4.5-11.0)
[2021-08-22 02:29] LABS: BUN/CREATININE RATIO 14 (0-10)
[2021-08-22] MEDS ORDERED: PROTONIX40 MG PO (11:32)
[2021-08-22] MEDS ORDERED: PHENERGAN 25 MG25 M1 PO (11:32)
[2021-08-22] MEDS ORDERED: THERAGRAN M TAB1 EA PO (11:48)
[2021-08-22] MEDS ORDERED: FERROUS GLUCON324 M2 PO (11:48)
--- NOTE | 2021-08-22 14:17 | NUR ---
SPOKE TO HOSPITALIST REGARDING IF I NEED TO DEACCESS PATIENTS PORT PRIOR TO DC THIS AFTERNOON BECAUSE PATIENT STATES IT STAYS ACCESSED. STATED TO DEACCESS THE PORT. WHEN SPEAKING WITH THE PATIENT ABOUT DEACCESSING, SHE STATES "ABSOLUTELY NOT, IT STAYS ACCESSED AND I HAVE A STANDING ORDER FOR IT FROM DR. WILKINSON AND DR. BENJAMIN IN [place] THAT STATES TO LEAVE IT ACCESSED AND THAT I CAN COME TO THE INFUSION CLINIC OR ER IF I NEED THE NEEDLE REPLACED." HOSPITALIST STATES "OKAY, LET HER GO." TOWER EQUIPMENT REPAIRER HAS ALSO BEEN NOTIFIED.
== END 2021-08-22 15:09 | disposition home or self-care (01) | DRG 871 ==
LOC: ER1 13:55 → CDU 17:41 → PROG CARE 17:41
PROVIDERS: Internal Medicine Infectious Disease; Physician Assistant; ADMIT Internal Medicine
PROC: 3E043XZ Introduction of Vasopressor into Central Vein, Percutaneous Approach (ICD-10-PCS; principal; 2021-08-16)
PROC: 3E03329 Introduction of Other Anti-infective into Peripheral Vein, Percutaneous Approach (ICD-10-PCS; 2021-08-16)
PROC: B24BZZZ Ultrasonography of Heart with Aorta (ICD-10-PCS; 2021-08-17)
DX: A41.9 Sepsis, unspecified organism (principal); J69.0 Pneumonitis due to inhalation of food and vomit; A09 Infectious gastroenteritis and colitis, unspecified; R45.851 Suicidal ideations; Z20.822 Contact with and (suspected) exposure to COVID-19; K86.1 Other chronic pancreatitis; W18.30XA Fall on same level, unspecified, initial encounter; Y92.230 Patient room in hospital as the place of occurrence of the external cause; R07.89 Other chest pain; E87.6 Hypokalemia; F60.9 Personality disorder, unspecified; D69.6 Thrombocytopenia, unspecified; K59.09 Other constipation; D50.9 Iron deficiency anemia, unspecified; E83.42 Hypomagnesemia; Z96.89 Presence of other specified functional implants; E86.1 Hypovolemia; D63.8 Anemia in other chronic diseases classified elsewhere; I95.9 Hypotension, unspecified; E86.0 Dehydration; E10.43 Type 1 diabetes mellitus with diabetic autonomic (poly)neuropathy; I10 Essential (primary) hypertension; K31.84 Gastroparesis; Z79.4 Long term (current) use of insulin; Z88.8 Allergy status to other drugs, medicaments and biological substances; Z80.8 Family history of malignant neoplasm of other organs or systems; Z80.0 Family history of malignant neoplasm of digestive organs; Z88.5 Allergy status to narcotic agent; Z88.6 Allergy status to analgesic agent; Z88.1 Allergy status to other antibiotic agents; Z91.041 Radiographic dye allergy status; Z76.5 Malingerer [conscious simulation]; I25.2 Old myocardial infarction; Z93.1 Gastrostomy status; Y99.9 Unspecified external cause status
CPT/HCPCS: ECHO; 36415; 70450; 71045; 72128; 72131; 80048; 80053; 80307; 81001; 82550; 82553; 82607; 82728; 82746; 82962; 83540; 83550; 83605; 83690; 83735; 84484; 85014; 85018; 85025; 86140; 87040; 87086; 93005; 93306; 96365; 96375; 99285; C9113; J0692; J1170; J1200; J1756; J2543; J2550; J2997; J3475; J7030; U0002

== ENCOUNTER 2021-08-25 09:54 | Inpatient (IN) | payer BC, MEDICARE ==
[~2021-08-25] VITALS: Ht 165.1 cm; Wt 73.9 kg
[~2021-08-25 09:54] MED LIST changes: +BASAGLAR K100 UNIT/1 SQ; +FERROUS GLUCON324 M2 PO; +PLAVIX75 MG PO; +PROTONIX40 MG PO; +THERAGRAN M TAB1 EA PO; +TIZANIDINE HCL4 MG PO
[2021-08-25 12:00] LABS: BUN/CREATININE RATIO 15 (0-10)
[2021-08-25 12:21] LABS: RED BLOOD COUNT 4.76 M/UL (4.00-5.10); WHITE BLOOD COUNT 15.6 K/UL (4.5-11.0)
[2021-08-25] MEDS ORDERED: PHENERGAN IM25 MG/ML IM (13:48)
[2021-08-25] MEDS ORDERED: DIPHENHYDR50 MG/1 ML INJ (13:51)
[2021-08-25 19:17] LABS: BUN/CREATININE RATIO 13 (0-10)
[2021-08-25 23:06] LABS: BUN/CREATININE RATIO 15 (0-10)
[2021-08-26 02:07] LABS: HEMOGLOBIN 11.3 gm/dl (12.3-15.3); RED BLOOD COUNT 4.72 M/UL (4.00-5.10)
[2021-08-26 02:22] LABS: WHITE BLOOD COUNT 19.9 K/UL (4.5-11.0)
[2021-08-26 02:24] LABS: BUN/CREATININE RATIO 13 (0-10)
--- NOTE | 2021-08-26 08:37 | NUR ---
WHILE ASSISTING THE PATIENT UP TO THE RESTROOM I FOUND 4 OPENED AND USED VIALS OF 25MG PROMETHAZINE. I ASKED HER WHERE THESE WERE FROM AND SHE INITIALLY SAID THAT THE ER GAVE THEM TO HER AND THEN GREGORY CHANGED HER ANSWER TO "HOSPICE GAVE THEM TO ME". I NOTIFIED JOSE LUIS GASTON, [employer] WORKER AND IGOR, PHARMACIST TO SEE IF THE LOT ON THE VIALS MATCHED THE MEDICATION WE USE. THE PATIENT REFUSED TO LET ME CHANGE HER BED SHEETS OR ASSIST HER TO THE BATHROOM. I EDUCATED HER ON THE SAFETY REASONS FOR ME TO ASSIST HER AND SHE ALLOWED ME TO HELP HER TO RESTROOM BUT TO LEAVE THE ROOM WHEN SHE DOES AND SHE STILL WILL NOT ALLOW ME TO CHANGE HER BEDSHEETS. BED IS LOCKED AND LOW POSITION AND BED ALARM IS ON. WILL CONTINUE TO MONITOR.
[2021-08-27 06:53] LABS: BUN/CREATININE RATIO 18 (0-10)
[2021-08-27 08:26] LABS: HEMOGLOBIN 11.2 gm/dl (12.3-15.3); RED BLOOD COUNT 4.63 M/UL (4.00-5.10); WHITE BLOOD COUNT 13.6 K/UL (4.5-11.0)
[2021-08-28 05:10] LABS: HEMOGLOBIN 10.7 gm/dl (12.3-15.3); RED BLOOD COUNT 4.47 M/UL (4.00-5.10)
[2021-08-28 05:13] LABS: WHITE BLOOD COUNT 8.2 K/UL (4.5-11.0)
[2021-08-28 05:33] LABS: BUN/CREATININE RATIO 18 (0-10)
[2021-08-29 03:27] LABS: RED BLOOD COUNT 3.75 M/UL (4.00-5.10); WHITE BLOOD COUNT 5.9 K/UL (4.5-11.0)
[2021-08-29 03:42] LABS: BUN/CREATININE RATIO 20 (0-10)
--- NOTE | 2021-08-29 06:19 | NUR ---
MAGNESIUM REPLACED THIS MORNING AFTER AM LAB SHOWING 1.9 REDRAW SCHEDULED 08/30 AT 0500. PATIENT REFUSED BED ALARM R/T SEIZURE PRECAUTIONS
[2021-08-30 05:54] LABS: HEMOGLOBIN 8.6 gm/dl (12.3-15.3); RED BLOOD COUNT 3.59 M/UL (4.00-5.10); WHITE BLOOD COUNT 7.2 K/UL (4.5-11.0)
[2021-08-30 06:41] LABS: BUN/CREATININE RATIO 35 (0-10)
== END 2021-08-30 17:36 | disposition home or self-care (01) | DRG 638 ==
LOC: ER1 09:54 → MED SURG 4 13:25 → CDU 13:25 → MED SURG 4 14:51 → CCU 15:01 → MED SURG 4 08-27 01:21
PROVIDERS: Emergency Medicine; Physician Assistant Medical; ADMIT Internal Medicine
DX: E10.10 Type 1 diabetes mellitus with ketoacidosis without coma (principal); K86.1 Other chronic pancreatitis; E10.43 Type 1 diabetes mellitus with diabetic autonomic (poly)neuropathy; Z20.822 Contact with and (suspected) exposure to COVID-19; G40.909 Epilepsy, unspecified, not intractable, without status epilepticus; K31.84 Gastroparesis; I10 Essential (primary) hypertension; G89.29 Other chronic pain; R10.9 Unspecified abdominal pain; R20.2 Paresthesia of skin; E27.9 Disorder of adrenal gland, unspecified; I16.0 Hypertensive urgency; D63.8 Anemia in other chronic diseases classified elsewhere; Z79.4 Long term (current) use of insulin; Z98.890 Other specified postprocedural states; Z88.5 Allergy status to narcotic agent; Z88.8 Allergy status to other drugs, medicaments and biological substances; Z88.6 Allergy status to analgesic agent; Z88.1 Allergy status to other antibiotic agents; Z91.041 Radiographic dye allergy status; Z80.8 Family history of malignant neoplasm of other organs or systems; Z80.0 Family history of malignant neoplasm of digestive organs; Z91.14 Patient's other noncompliance with medication regimen
CPT/HCPCS: 36415; 71045; 80048; 80053; 80307; 81001; 82009; 82550; 82553; 82962; 83036; 83605; 83690; 83735; 83880; 84100; 84484; 85025; 87040; 93005; 96374; 96375; 97161; 97165; 99285; J0360; J0780; J1170; J1200; J1650; J2060; J2185; J2270; J2405; J2550; J3475; J7030; U0002

== ENCOUNTER 2021-09-19 23:58 | Emergency (ER) | payer BC, MEDICARE ==
[~2021-09-19 23:58] MED LIST changes: +PHENERGAN IM25 MG/ML IM
[2021-09-20 02:03] LABS: RED BLOOD COUNT 4.71 M/UL (4.00-5.10); WHITE BLOOD COUNT 7.9 K/UL (4.5-11.0)
[2021-09-20 02:47] LABS: BUN/CREATININE RATIO 30 (0-10)
== END 2021-09-20 05:38 | disposition home or self-care (01) ==
LOC: ER1 23:58
PROVIDERS: Family Medicine
DX: E86.0 Dehydration (principal); E10.43 Type 1 diabetes mellitus with diabetic autonomic (poly)neuropathy; K31.84 Gastroparesis; F41.9 Anxiety disorder, unspecified; I10 Essential (primary) hypertension; Z91.041 Radiographic dye allergy status; Z88.8 Allergy status to other drugs, medicaments and biological substances; Z88.6 Allergy status to analgesic agent; Z88.1 Allergy status to other antibiotic agents; Z88.5 Allergy status to narcotic agent
CPT/HCPCS: 71045; 80053; 82009; 82550; 82553; 82962; 83605; 83690; 84484; 85025; 87040; 93005; 96374; 96375; 99285; J1200; J1642; J2550

== ENCOUNTER → 2021-10-28 | Day surgery (SDC) | payer BC, MEDICARE ==
[~2021-10-28] MED LIST changes: +AMOX TR-K400 MG/5 M PO; +KAPSPARGO SPRIN25 MG PO; +LISINOPRIL10 MG PO; +MIRTAZAPINE15 MG PO; +PHENERGAN 50 MG50 MG PR; +PROMETHAZI6.25 MG/5 PO; +PROTONIX 40 MG40 M1 PO; +REMERON 15 MG T15 MG GT; -TIZANIDINE HCL4 MG PO; +ZOVIRAX 5% TOP
[2021-10-28 07:17] LABS: HEMOGLOBIN 11.1 gm/dl (12.3-15.3); RED BLOOD COUNT 4.37 M/UL (4.00-5.10); WHITE BLOOD COUNT 8.4 K/UL (4.5-11.0)
[2021-10-28 07:26] LABS: BUN/CREATININE RATIO 20 (0-10)
== END | disposition home or self-care (01) ==
LOC: OR 06:23
PROVIDERS: Surgery
DX: Z45.2 Encounter for adjustment and management of vascular access device (principal); K94.23 Gastrostomy malfunction; K31.84 Gastroparesis; I11.0 Hypertensive heart disease with heart failure; I50.9 Heart failure, unspecified; I25.10 Atherosclerotic heart disease of native coronary artery without angina pectoris; I25.2 Old myocardial infarction; F32.A Depression, unspecified; E11.9 Type 2 diabetes mellitus without complications; Z88.5 Allergy status to narcotic agent; Z88.8 Allergy status to other drugs, medicaments and biological substances; Z79.84 Long term (current) use of oral hypoglycemic drugs; Z79.899 Other long term (current) drug therapy
CPT/HCPCS: 36415; 71045; 77001; 80048; 82962; 85027; 93005; C1769; C1788; J0690; J1642; J2001; J2704; J7040; J7120

== ENCOUNTER → 2021-11-03 | Outpatient (CLI) | payer BC ==
[~2021-11-03] MED LIST changes: -AMOX TR-K400 MG/5 M PO; -PROTONIX 40 MG40 M1 PO; -ZOVIRAX 5% TOP
== END ==
LOC: OPSV 15:00
DX: Z45.2 Encounter for adjustment and management of vascular access device (principal)
CPT/HCPCS: 96523

== ENCOUNTER 2021-11-04 15:54 | Inpatient (IN) | payer BC, MEDICARE ==
[~2021-11-04] VITALS: Ht 165.1 cm; Wt 81.4 kg
[~2021-11-04 15:54] MED LIST changes: -MIRTAZAPINE15 MG PO; -PROMETHAZI6.25 MG/5 PO
[2021-11-04 19:59] LABS: HEMOGLOBIN 13.9 gm/dl (12.3-15.3); RED BLOOD COUNT 5.23 M/UL (4.00-5.10); WHITE BLOOD COUNT 17.4 K/UL (4.5-11.0)
[2021-11-04 20:28] LABS: BUN/CREATININE RATIO 24 (0-10)
[2021-11-05 02:00] LABS: WHITE BLOOD COUNT 18.5 K/UL (4.5-11.0)
[2021-11-05 02:02] LABS: HEMOGLOBIN 11.9 gm/dl (12.3-15.3); RED BLOOD COUNT 4.47 M/UL (4.00-5.10)
[2021-11-05 02:22] LABS: BUN/CREATININE RATIO 24 (0-10)
[2021-11-05] MEDS ORDERED: MIRTAZAPINE15 MG PO (11:44)
[2021-11-05] MEDS ORDERED: DIPHENHYDR50 MG/1 M1 INJ (11:51)
[2021-11-05] MEDS ORDERED: PROMETHAZI6.25 MG/5 PO (11:55)
[2021-11-06 03:09] LABS: HEMOGLOBIN 11.2 gm/dl (12.3-15.3); RED BLOOD COUNT 4.25 M/UL (4.00-5.10)
[2021-11-06 03:11] LABS: WHITE BLOOD COUNT 11.4 K/UL (4.5-11.0)
[2021-11-06 03:27] LABS: BUN/CREATININE RATIO 22 (0-10)
[2021-11-08 01:54] LABS: HEMOGLOBIN 11.1 gm/dl (12.3-15.3); RED BLOOD COUNT 4.23 M/UL (4.00-5.10)
[2021-11-08 01:56] LABS: WHITE BLOOD COUNT 5.1 K/UL (4.5-11.0)
[2021-11-08 02:15] LABS: BUN/CREATININE RATIO 31 (0-10)
[2021-11-09 02:22] LABS: BUN/CREATININE RATIO 29 (0-10)
[2021-11-10 01:27] LABS: HEMOGLOBIN 10.7 gm/dl (12.3-15.3); RED BLOOD COUNT 4.08 M/UL (4.00-5.10)
[2021-11-10 01:38] LABS: WHITE BLOOD COUNT 10.2 K/UL (4.5-11.0)
[2021-11-10 01:53] LABS: BUN/CREATININE RATIO 28 (0-10)
[2021-11-11 03:45] LABS: HEMOGLOBIN 11.2 gm/dl (12.3-15.3); RED BLOOD COUNT 4.15 M/UL (4.00-5.10)
[2021-11-11 03:48] LABS: WHITE BLOOD COUNT 6.7 K/UL (4.5-11.0)
[2021-11-11 04:05] LABS: BUN/CREATININE RATIO 28 (0-10)
[2021-11-11] MEDS ORDERED: ZOVIRAX 5% TOP (09:48)
[2021-11-11] MEDS ORDERED: PROTONIX 40 MG40 M1 PO (09:48)
== END 2021-11-11 14:19 | disposition home or self-care (01) | DRG 872 ==
LOC: ER1 15:54 → PROG CARE 21:30 → CDU 21:30 → PROG CARE 22:42
PROVIDERS: Emergency Medicine; Internal Medicine; ADMIT Internal Medicine
DX: A41.51 Sepsis due to Escherichia coli [E. coli] (principal); N30.00 Acute cystitis without hematuria; Z20.822 Contact with and (suspected) exposure to COVID-19; K86.1 Other chronic pancreatitis; M79.662 Pain in left lower leg; G40.909 Epilepsy, unspecified, not intractable, without status epilepticus; I95.9 Hypotension, unspecified; G89.4 Chronic pain syndrome; K64.9 Unspecified hemorrhoids; E87.6 Hypokalemia; E10.43 Type 1 diabetes mellitus with diabetic autonomic (poly)neuropathy; K31.84 Gastroparesis; I16.0 Hypertensive urgency; Z96.82 Presence of neurostimulator; Z76.5 Malingerer [conscious simulation]; Z79.4 Long term (current) use of insulin; Z93.1 Gastrostomy status; Z95.0 Presence of cardiac pacemaker; Z90.49 Acquired absence of other specified parts of digestive tract; Z88.5 Allergy status to narcotic agent; Z88.8 Allergy status to other drugs, medicaments and biological substances; Z88.6 Allergy status to analgesic agent; Z91.041 Radiographic dye allergy status; Z80.41 Family history of malignant neoplasm of ovary; Z87.19 Personal history of other diseases of the digestive system; Z80.0 Family history of malignant neoplasm of digestive organs; I25.2 Old myocardial infarction
CPT/HCPCS: 36415; 71045; 73630; 73700; 80048; 80053; 80307; 81001; 82550; 82553; 82962; 83605; 83690; 84484; 84550; 84703; 85025; 85027; 86140; 87040; 87077; 87086; 87186; 93005; 93971; 96374; 96375; 96376; 99285; C9113; J0696; J1170; J1200; J1335; J1650; J1956; J2185; J2550; J7030

== ENCOUNTER 2021-11-14 20:35 | Emergency (ER) | payer BC, MEDICARE ==
[~2021-11-14 20:35] MED LIST changes: +MIRTAZAPINE15 MG PO; +PROMETHAZI6.25 MG/5 PO; +PROTONIX 40 MG40 M1 PO; +ZOVIRAX 5% TOP
[2021-11-14 23:02] LABS: HEMOGLOBIN 11.1 gm/dl (12.3-15.3); RED BLOOD COUNT 4.11 M/UL (4.00-5.10); WHITE BLOOD COUNT 11.1 K/UL (4.5-11.0)
[2021-11-15 00:22] LABS: BUN/CREATININE RATIO 24 (0-10)
[2021-11-15] MEDS ORDERED: AMOX TR-K400 MG/5 M PO (01:37)
== END 2021-11-15 02:03 | disposition home or self-care (01) ==
LOC: ER1 20:35
PROVIDERS: Physician Assistant
DX: K59.00 Constipation, unspecified (principal); K52.9 Noninfective gastroenteritis and colitis, unspecified
CPT/HCPCS: 80053; 81001; 82150; 83605; 83690; 85025; 87086; 96372; 96374; 96375; 99284; C9113; J0780; J1170; J2550; Q9967

== ENCOUNTER 2021-11-15 14:44 | Inpatient (IN) | payer BC, MEDICARE ==
[~2021-11-15] VITALS: Ht 165.1 cm; Wt 74.8 kg
[~2021-11-15 14:44] MED LIST changes: +AMOX TR-K400 MG/5 M PO
[2021-11-15 17:09] LABS: HEMOGLOBIN 11.2 gm/dl (12.3-15.3); RED BLOOD COUNT 4.21 M/UL (4.00-5.10); WHITE BLOOD COUNT 13.3 K/UL (4.5-11.0)
[2021-11-15 17:31] LABS: BUN/CREATININE RATIO 24 (0-10)
[2021-11-16 08:49] LABS: HEMOGLOBIN 9.9 gm/dl (12.3-15.3); WHITE BLOOD COUNT 11.6 K/UL (4.5-11.0)
[2021-11-16 08:50] LABS: RED BLOOD COUNT 3.7 M/UL (4.00-5.10)
[2021-11-16 09:37] LABS: BUN/CREATININE RATIO 21 (0-10)
[2021-11-17 07:35] LABS: BUN/CREATININE RATIO 22 (0-10)
[2021-11-17 07:49] LABS: HEMOGLOBIN 8.4 gm/dl (12.3-15.3)
[2021-11-17 07:54] LABS: RED BLOOD COUNT 3.14 M/UL (4.00-5.10)
[2021-11-18 06:45] LABS: HEMOGLOBIN 9.4 gm/dl (12.3-15.3); WHITE BLOOD COUNT 5.8 K/UL (4.5-11.0)
[2021-11-18 06:46] LABS: RED BLOOD COUNT 3.51 M/UL (4.00-5.10)
[2021-11-18 06:57] LABS: BUN/CREATININE RATIO 18 (0-10)
[2021-11-19 07:22] LABS: HEMOGLOBIN 10.7 gm/dl (12.3-15.3)
[2021-11-19 07:24] LABS: RED BLOOD COUNT 4.13 M/UL (4.00-5.10); WHITE BLOOD COUNT 9.8 K/UL (4.5-11.0)
[2021-11-19 07:39] LABS: BUN/CREATININE RATIO 15 (0-10)
[2021-11-20 06:00] LABS: RED BLOOD COUNT 3.78 M/UL (4.00-5.10)
[2021-11-20 06:05] LABS: WHITE BLOOD COUNT 17.3 K/UL (4.5-11.0)
[2021-11-20 06:25] LABS: BUN/CREATININE RATIO 13 (0-10)
[2021-11-20 09:56] LABS: RED BLOOD COUNT 4.12 M/UL (4.00-5.10); WHITE BLOOD COUNT 18.1 K/UL (4.5-11.0)
[2021-11-21 02:36] LABS: HEMOGLOBIN 9.6 gm/dl (12.3-15.3); WHITE BLOOD COUNT 14.7 K/UL (4.5-11.0)
[2021-11-21 02:38] LABS: RED BLOOD COUNT 3.64 M/UL (4.00-5.10)
[2021-11-22 05:04] LABS: HEMOGLOBIN 10.4 gm/dl (12.3-15.3); RED BLOOD COUNT 3.94 M/UL (4.00-5.10)
[2021-11-22 05:05] LABS: WHITE BLOOD COUNT 18.6 K/UL (4.5-11.0)
[2021-11-22 05:28] LABS: BUN/CREATININE RATIO 24 (0-10)
[2021-11-23 06:50] LABS: HEMOGLOBIN 10.8 gm/dl (12.3-15.3); RED BLOOD COUNT 4.21 M/UL (4.00-5.10)
[2021-11-23 07:15] LABS: BUN/CREATININE RATIO 22 (0-10)
[2021-11-23 08:22] LABS: WHITE BLOOD COUNT 25.6 K/UL (4.5-11.0)
[2021-11-24 06:31] LABS: RED BLOOD COUNT 4.18 M/UL (4.00-5.10)
[2021-11-24 07:12] LABS: BUN/CREATININE RATIO 23 (0-10)
[2021-11-24 07:30] LABS: WHITE BLOOD COUNT 16.3 K/UL (4.5-11.0)
[2021-11-24 15:10] LABS: ORGANISM ID Not indicated. (.); SPECIMEN SOURCE Urine (.); STREPTOCOCCUS PNEUMONIAE AG Negative (Negative)
[2021-11-25 10:25] LABS: HEMOGLOBIN 10.4 gm/dl (12.3-15.3); RED BLOOD COUNT 3.95 M/UL (4.00-5.10); WHITE BLOOD COUNT 13.7 K/UL (4.5-11.0)
[2021-11-25 10:46] LABS: BUN/CREATININE RATIO 15 (0-10)
[2021-11-26 08:14] LABS: HEMOGLOBIN 11.4 gm/dl (12.3-15.3); WHITE BLOOD COUNT 12.1 K/UL (4.5-11.0)
[2021-11-26 09:24] LABS: BUN/CREATININE RATIO 12 (0-10)
[2021-11-26 09:33] LABS: RED BLOOD COUNT 4.43 M/UL (4.00-5.10)
[2021-11-28 07:17] LABS: WHITE BLOOD COUNT 10.3 K/UL (4.5-11.0)
[2021-11-28 07:24] LABS: RED BLOOD COUNT 3.84 M/UL (4.00-5.10)
[2021-11-28 14:05] LABS: BUN/CREATININE RATIO 15 (0-10)
[2021-11-29 08:39] LABS: BUN/CREATININE RATIO 13 (0-10)
[2021-11-30 04:27] LABS: HEMOGLOBIN 9.7 gm/dl (12.3-15.3); RED BLOOD COUNT 3.72 M/UL (4.00-5.10); WHITE BLOOD COUNT 9.8 K/UL (4.5-11.0)
[2021-11-30 04:38] LABS: BUN/CREATININE RATIO 10 (0-10)
[2021-12-01 06:29] LABS: HEMOGLOBIN 9.5 gm/dl (12.3-15.3); RED BLOOD COUNT 3.65 M/UL (4.00-5.10); WHITE BLOOD COUNT 8.6 K/UL (4.5-11.0)
[2021-12-01 14:30] LABS: BUN/CREATININE RATIO 18 (0-10)
--- NOTE | 2021-12-04 15:59 | NUR ---
LATE ENTRY: 1300 SOAP SUDS ENEMA COMPLETED AT THIS TIME PT STATED THAT IT HURT HER REALLY BAD WHERE SHE HAS HAD SO MANY LOSE STOOLS LATELY.
--- NOTE | 2021-12-04 17:10 | NUR ---
KAEXALTE ENEMA GIVEN PER DR ORDER.
--- NOTE | 2021-12-05 03:54 | NUR ---
patients blood pressure was elevated during first round of vitals provider was notified and orders were placed
[2021-12-05 06:17] LABS: HEMOGLOBIN 10.1 gm/dl (12.3-15.3); RED BLOOD COUNT 3.91 M/UL (4.00-5.10); WHITE BLOOD COUNT 7.4 K/UL (4.5-11.0)
[2021-12-05 06:35] LABS: BUN/CREATININE RATIO 20 (0-10)
--- NOTE | 2021-12-05 22:51 | NUR ---
PATIENT AGREED TO TAKE LACTULOSE, DULCOLAX AND PROCTOFOAM BUT REFUSED TO ALLOW NURSES TO HELP ADMINISTER THESE MEDICATIONS. SHE ALSO REFUSED HER INSULIN EVEN THOUGH FSBG IS 150.
[2021-12-06 07:47] LABS: BUN/CREATININE RATIO 22 (0-10)
[2021-12-06 07:51] LABS: RED BLOOD COUNT 3.85 M/UL (4.00-5.10); WHITE BLOOD COUNT 7.8 K/UL (4.5-11.0)
--- NOTE | 2021-12-06 14:59 | NUR ---
ATTEMPTED TO CHANGE PORT DRESSING AND NEEDLE ACCORDING TO POLICY, PT REFUSED TO HAVE PORT NEEDLE CHANGED AND REFUSED TO HAVE DRESSING CHANGED WELL, I INFORMED HER OF THE POLICY AND WHY WE CHANGE THE NEEDLE AND DRESSING, THE PATIENT STILL REFUSED TO HAVE THE NEEDLE AND DRESSING CHANGED, INFORMED TURNER GLEZ OF PT WISHES
--- NOTE | 2021-12-07 07:14 | NUR ---
PATIENT STARTED WITH INCREASED ABDOMINAL PAIN AND VOMITING THIS AM AT APPROXIMATELY 6:00AM. ASSESSED PATIENT AND DECIDED TO CONTACT DR. PATRICK FROM [facility] FOR POSSIBLE NEW ORDERS. DR PATRICK SUGGESTED A CT SCAN OF THE ABD AND CONTACTING HOSPITALIST FOR PATIENT DUE TO [place] AFTER [place] (12/07/21).
--- NOTE | 2021-12-07 07:30 | NUR ---
NOTIFIED HOSPITALIST DR. GIVENS PER DR. PATRICK ABOUT INCREASED ABD PAIN AND VOMITING, WELL CT SCAN NEEDING FOLLOWING UP ON. PER DR. GIVENS I WAS INSTRUCTED TO LET DAY SHIFT NURSE KNOW TO NOTIFY THE DAY TIME HOSPITALIST ABOUT SITUATION. DAY SHIFT NURSE NOTIFIED.
[2021-12-07 10:21] LABS: RED BLOOD COUNT 4.3 M/UL (4.00-5.10); WHITE BLOOD COUNT 10.7 K/UL (4.5-11.0)
[2021-12-07 10:50] LABS: BUN/CREATININE RATIO 15 (0-10)
[2021-12-08 06:56] LABS: HEMOGLOBIN 9.2 gm/dl (12.3-15.3)
[2021-12-08 06:57] LABS: RED BLOOD COUNT 3.54 M/UL (4.00-5.10); WHITE BLOOD COUNT 6.8 K/UL (4.5-11.0)
[2021-12-08 07:21] LABS: BUN/CREATININE RATIO 20 (0-10)
[2021-12-09 07:01] LABS: HEMOGLOBIN 9.7 gm/dl (12.3-15.3); RED BLOOD COUNT 3.81 M/UL (4.00-5.10)
[2021-12-09 07:21] LABS: BUN/CREATININE RATIO 18 (0-10)
[2021-12-09] MEDS ORDERED: BASAGLAR K100 UNIT/1 SQ (09:25)
[2021-12-09] MEDS ORDERED: ELIQUIS 5 MG TAB5 MG PO (09:25)
[2021-12-10 03:51] LABS: BUN/CREATININE RATIO 12 (0-10)
[2021-12-10 03:58] LABS: HEMOGLOBIN 10.4 gm/dl (12.3-15.3); WHITE BLOOD COUNT 8.5 K/UL (4.5-11.0)
[2021-12-10] MEDS ORDERED: DIFICID 200 MG200 MG PO (08:16)
--- NOTE | 2021-12-10 14:58 | NUR ---
PATIENT DISCHARGED POSTPONED AT THIS TIME PER MD ORDERS CASE MANAGEMENT IS UNABLE TO OBTAIN APPROVAL FOR IV ANTIBIOTIC THERAPY.
[2021-12-11 07:02] LABS: HEMOGLOBIN 8.9 gm/dl (12.3-15.3); WHITE BLOOD COUNT 8.4 K/UL (4.5-11.0)
[2021-12-11 07:03] LABS: RED BLOOD COUNT 3.47 M/UL (4.00-5.10)
[2021-12-11 07:27] LABS: BUN/CREATININE RATIO 23 (0-10)
== END 2021-12-11 10:33 | disposition home health service (06) | DRG 372 ==
LOC: ER1 14:44 → MED SURG 4 17:46 → CDU 17:46 → MED SURG 4 11-16 09:13
PROVIDERS: Internal Medicine; Nurse Practitioner; ADMIT Internal Medicine Infectious Disease
DX: A04.72 Enterocolitis due to Clostridium difficile, not specified as recurrent (principal); B37.0 Candidal stomatitis; E87.2 Acidosis; R45.851 Suicidal ideations; N39.0 Urinary tract infection, site not specified; E87.1 Hypo-osmolality and hyponatremia; E44.0 Moderate protein-calorie malnutrition; I82.A12 Acute embolism and thrombosis of left axillary vein; I82.622 Acute embolism and thrombosis of deep veins of left upper extremity; I82.C12 Acute embolism and thrombosis of left internal jugular vein; I82.B12 Acute embolism and thrombosis of left subclavian vein; I13.0 Hypertensive heart and chronic kidney disease with heart failure and stage 1 through stage 4 chronic kidney disease, or unspecified chronic kidney disease; E88.09 Other disorders of plasma-protein metabolism, not elsewhere classified; E11.65 Type 2 diabetes mellitus with hyperglycemia; N18.9 Chronic kidney disease, unspecified; I50.9 Heart failure, unspecified; E11.43 Type 2 diabetes mellitus with diabetic autonomic (poly)neuropathy; G89.29 Other chronic pain; K59.00 Constipation, unspecified; K31.84 Gastroparesis; I10 Essential (primary) hypertension; G40.909 Epilepsy, unspecified, not intractable, without status epilepticus; D50.9 Iron deficiency anemia, unspecified; Z93.1 Gastrostomy status; Z90.710 Acquired absence of both cervix and uterus; Z98.890 Other specified postprocedural states; Z88.5 Allergy status to narcotic agent; Z88.8 Allergy status to other drugs, medicaments and biological substances; Z79.899 Other long term (current) drug therapy; Z80.0 Family history of malignant neoplasm of digestive organs; I25.2 Old myocardial infarction; Z68.27 Body mass index [BMI] 27.0-27.9, adult; Z79.4 Long term (current) use of insulin
CPT/HCPCS: 36415; 70450; 71045; 71046; 71250; 74018; 74150; 76700; 80048; 80053; 80202; 80307; 81001; 82150; 82550; 82553; 82962; 83036; 83605; 83690; 83735; 83880; 84100; 84484; 85025; 85027; 85652; 85730; 86140; 87040; 87086; 87324; 87449; 87899; 93005; 93971; 96361; 96365; 96375; 96376; 99285; C9113; J0360; J0692; J1170; J1200; J1335; J1650; J2543; J2550; J2997; J3370; J3475; J7070; U0002

== ENCOUNTER 2021-12-14 17:56 | Emergency (ER) | payer BC, MEDICARE ==
[~2021-12-14 17:56] MED LIST changes: +DIFICID 200 MG200 MG PO; +ELIQUIS 5 MG TAB5 MG PO
[2021-12-14 20:30] LABS: RED BLOOD COUNT 4.39 M/UL (4.00-5.10)
[2021-12-14 20:42] LABS: HEMOGLOBIN 11.6 gm/dl (12.3-15.3)
[2021-12-14 20:49] LABS: BUN/CREATININE RATIO 22 (0-10)
[2021-12-15] MEDS ORDERED: LACTULOSE20 GM/30 M PO (00:10)
== END 2021-12-15 00:15 | disposition home or self-care (01) ==
LOC: ER1 17:56
PROVIDERS: Emergency Medicine
DX: K59.00 Constipation, unspecified (principal); E11.43 Type 2 diabetes mellitus with diabetic autonomic (poly)neuropathy; K31.84 Gastroparesis; Z79.4 Long term (current) use of insulin; Z88.5 Allergy status to narcotic agent; Z79.01 Long term (current) use of anticoagulants
CPT/HCPCS: 80053; 81001; 82009; 83605; 83690; 85025; 96361; 96374; 96375; 99284; J1170; J1200; J2550

== ENCOUNTER → 2021-12-15 | Outpatient (CLI) | payer BC ==
[~2021-12-15] MED LIST changes: +LACTULOSE20 GM/30 M PO
== END ==
LOC: OPSV 13:02
DX: Z45.2 Encounter for adjustment and management of vascular access device (principal)
CPT/HCPCS: G0463

== ENCOUNTER 2021-12-22 14:27 | Emergency (ER) | payer BC ==
[2021-12-22 17:09] LABS: HEMOGLOBIN 15.2 gm/dl (12.3-15.3); RED BLOOD COUNT 5.81 M/UL (4.00-5.10); WHITE BLOOD COUNT 8.9 K/UL (4.5-11.0)
[2021-12-22 18:20] LABS: BUN/CREATININE RATIO 18 (0-10)
== END 2021-12-22 22:00 | disposition home or self-care (01) ==
LOC: ER1 14:27
PROVIDERS: Nurse Practitioner
DX: T82.594A Other mechanical complication of infusion catheter, initial encounter (principal); I82.622 Acute embolism and thrombosis of deep veins of left upper extremity; Z90.49 Acquired absence of other specified parts of digestive tract; Z79.01 Long term (current) use of anticoagulants
CPT/HCPCS: 80053; 81001; 83605; 85025; 85652; 86140; 87040; 87086; 96365; 96375; 99284; J1200; J2550

== ENCOUNTER 2021-12-28 13:19 | Inpatient (IN) | payer BC ==
[~2021-12-28] VITALS: Ht 165.1 cm; Wt 79.2 kg
[2021-12-28 15:52] LABS: RED BLOOD COUNT 4.15 M/UL (4.00-5.10); WHITE BLOOD COUNT 11.7 K/UL (4.5-11.0)
[2021-12-28 16:00] LABS: HEMOGLOBIN 10.6 gm/dl (12.3-15.3)
[2021-12-28 16:42] LABS: BUN/CREATININE RATIO 19 (0-10)
[2021-12-30 03:30] LABS: HEMOGLOBIN 9.2 gm/dl (12.3-15.3); RED BLOOD COUNT 3.69 M/UL (4.00-5.10); WHITE BLOOD COUNT 12.8 K/UL (4.5-11.0)
--- NOTE | 2021-12-30 04:24 | NUR ---
ELISEO HAS BEEN NONCOMPLIANT THROUGHOUT THE NIGHT. PT DOES NOT WANT LABS DRAWN. I TALKED HER INTO ATLEAST LETTING LAB DO A FINGER STICK TO GET SOME LABS. BUT IT WAS NOT ENOUGH TO OBTAIN THE LACTIC AND OTHER LABS ORDERED. I ASKED THE PATIENT IF WE COULD REDRAW THE LABS AND SHE SAID NO. SHE HAS REFUSED SEVERAL TIMES THROUGHOUT THE NIGHT FOR ANY STICKS.
[2021-12-30 07:33] LABS: BUN/CREATININE RATIO 24 (0-10)
[2021-12-31 04:29] LABS: BUN/CREATININE RATIO 24 (0-10)
[2021-12-31 11:15] LABS: RED BLOOD COUNT 3.16 M/UL (4.00-5.10)
[2021-12-31 11:16] LABS: WHITE BLOOD COUNT 8.1 K/UL (4.5-11.0)
[2022-01-01 05:55] LABS: HEMOGLOBIN 8.6 gm/dl (12.3-15.3); RED BLOOD COUNT 3.39 M/UL (4.00-5.10)
[2022-01-01 05:56] LABS: WHITE BLOOD COUNT 5.7 K/UL (4.5-11.0)
[2022-01-01 06:16] LABS: BUN/CREATININE RATIO 23 (0-10)
[2022-01-02 06:01] LABS: HEMOGLOBIN 9.8 gm/dl (12.3-15.3); RED BLOOD COUNT 3.85 M/UL (4.00-5.10); WHITE BLOOD COUNT 8.6 K/UL (4.5-11.0)
[2022-01-02 06:32] LABS: BUN/CREATININE RATIO 17 (0-10)
[2022-01-03 05:35] LABS: HEMOGLOBIN 9.9 gm/dl (12.3-15.3); RED BLOOD COUNT 3.94 M/UL (4.00-5.10)
[2022-01-03 05:44] LABS: WHITE BLOOD COUNT 4.7 K/UL (4.5-11.0)
[2022-01-03 05:59] LABS: BUN/CREATININE RATIO 23 (0-10)
[2022-01-05 02:27] LABS: HEMOGLOBIN 9.3 gm/dl (12.3-15.3); RED BLOOD COUNT 3.71 M/UL (4.00-5.10)
[2022-01-05 02:48] LABS: WHITE BLOOD COUNT 7.1 K/UL (4.5-11.0)
[2022-01-05 08:34] LABS: BUN/CREATININE RATIO 18 (0-10)
[2022-01-06 07:50] LABS: RED BLOOD COUNT 3.66 M/UL (4.00-5.10)
[2022-01-06 07:53] LABS: WHITE BLOOD COUNT 4.5 K/UL (4.5-11.0)
[2022-01-06 08:11] LABS: BUN/CREATININE RATIO 32 (0-10)
[2022-01-07 08:00] LABS: HEMOGLOBIN 8.7 gm/dl (12.3-15.3); RED BLOOD COUNT 3.5 M/UL (4.00-5.10)
[2022-01-07 08:33] LABS: BUN/CREATININE RATIO 29 (0-10)
--- NOTE | 2022-01-07 13:16 | NUR ---
TELE CALLED TO NOTIFY THAT PT HAS T ELEVATION, V-TACH RUN, AND COUPLET RUN WITH COMPLAINTS OF CHEST PRESSURE AND TIGHTNESS. PROVIDER MADE AWARE, EKG AND LABS TO BE PERFORMED. PROVIDER AWARE THAT BLOOD CLOTS ARE PRESENT AND THAT DUE TO THESE BLOOD CLOTS AN IV WILL NEED TO BE PLACE FOR BLOOD DRAW TO MONITOR CARDIAC ENZYME LEVELS. ALVINA CONSULTED FOR IV PLACEMENT TO LOWER EXTREMITIES. WILL CONTINUE TO MONITOR.
--- NOTE | 2022-01-07 14:08 | NUR ---
PLACED 20G TO LEFT LOWER LEG PER DR. CLARK ORDER TO ATTEMPT TO DRAW LABS, I WAS ABLE TO OBTAIN ACCESS FLUSHED WELL VISUALIZED FLUSHING WITH ULTRASOUND, BUT WAS UNABLE TO DRAW BLOOD FOR LABS FROM LINE, REMOVED IV FROM LEFT LOWER LEG, SPOKE WITH DR. CLARK REGARDING THIS AND THE PATIENT NOT HAVING ANY OTHER OPTIONS TO STICK, LAB WILL TRY TO DO FINGER STICK LAB DRAW AT THIS TIME
--- NOTE | 2022-01-07 16:05 | NUR ---
REPORT GIVEN TO SHAYLEE AT 1600. PT RESTING IN BED. NAD. MONITORING.
[2022-01-08 06:34] LABS: HEMOGLOBIN 8.9 gm/dl (12.3-15.3); RED BLOOD COUNT 3.58 M/UL (4.00-5.10); WHITE BLOOD COUNT 4.8 K/UL (4.5-11.0)
[2022-01-08 06:53] LABS: BUN/CREATININE RATIO 23 (0-10)
[2022-01-09 08:16] LABS: HEMOGLOBIN 8.8 gm/dl (12.3-15.3); RED BLOOD COUNT 3.51 M/UL (4.00-5.10)
[2022-01-09 08:33] LABS: BUN/CREATININE RATIO 22 (0-10)
--- NOTE | 2022-01-09 16:22 | NUR ---
PATIENT HAD BLOOD PRESSURE OF 178/88. PAIN MEDICATIONS ADMINISTERED AND BLOOD PRESSURE RECHECKED. BLOOD PRESSURE WAS FOUND TO BE 192/89. PO HYDRALAZINE ON PATIENT'S EMAR GIVEN PER PROVIDER ORDER. PROVIDER NOTIFIED. WILL CONTINUE TO MONITOR.
[2022-01-10 06:36] LABS: BUN/CREATININE RATIO 15 (0-10)
[2022-01-10] MEDS ORDERED: LOVENOX120 MG/0.8 SQ (15:01)
[2022-01-11 06:16] LABS: RED BLOOD COUNT 3.75 M/UL (4.00-5.10)
[2022-01-11 06:20] LABS: WHITE BLOOD COUNT 3.2 K/UL (4.5-11.0)
[2022-01-11 06:27] LABS: BUN/CREATININE RATIO 17 (0-10)
[2022-01-12 06:40] LABS: HEMOGLOBIN 8.7 gm/dl (12.3-15.3); RED BLOOD COUNT 3.57 M/UL (4.00-5.10); WHITE BLOOD COUNT 3.5 K/UL (4.5-11.0)
[2022-01-12 07:02] LABS: BUN/CREATININE RATIO 17 (0-10)
[2022-01-14 06:36] LABS: WHITE BLOOD COUNT 2.8 K/UL (4.5-11.0)
[2022-01-14 06:49] LABS: RED BLOOD COUNT 4.31 M/UL (4.00-5.10)
[2022-01-14 07:35] LABS: BUN/CREATININE RATIO 23 (0-10)
[2022-01-15 07:36] LABS: HEMOGLOBIN 8.6 gm/dl (12.3-15.3)
[2022-01-15 07:37] LABS: RED BLOOD COUNT 3.52 M/UL (4.00-5.10); WHITE BLOOD COUNT 4.1 K/UL (4.5-11.0)
[2022-01-15 08:12] LABS: BUN/CREATININE RATIO 22 (0-10)
[2022-01-17 06:48] LABS: HEMOGLOBIN 9.1 gm/dl (12.3-15.3); RED BLOOD COUNT 3.68 M/UL (4.00-5.10); WHITE BLOOD COUNT 3.4 K/UL (4.5-11.0)
[2022-01-17 08:43] LABS: BUN/CREATININE RATIO 26 (0-10)
[2022-01-18] MEDS ORDERED: PHENERGAN 50 MG50 MG PR (11:18)
[2022-01-18] MEDS ORDERED: BENADRYL A12.5 MG/5 GT (11:18)
[2022-01-18] MEDS ORDERED: BASAGLAR K100 UNIT/1 SQ (11:18)
[2022-01-18] MEDS ORDERED: TIZANIDINE HCL6 MG PO (12:15)
[2022-01-18] MEDS ORDERED: ROXICODONE TAB 55 MG PO (12:15)
== END 2022-01-18 17:33 | disposition home or self-care (01) | DRG 314 ==
LOC: ER1 13:19 → PROG CARE 17:24 → CDU 17:24 → PROG CARE 17:24 → MED SURG 4 12-30 13:20 → PROG CARE 12-30 13:20 → MED SURG 4 01-05 19:03
PROVIDERS: Emergency Medicine; Family Medicine; Internal Medicine; Surgery; ADMIT Internal Medicine
PROC: 3E033XZ Introduction of Vasopressor into Peripheral Vein, Percutaneous Approach (ICD-10-PCS; 2021-12-30)
PROC: 0JPV0WZ Removal of Totally Implantable Vascular Access Device from Upper Extremity Subcutaneous Tissue and Fascia, Open Approach (ICD-10-PCS; 2021-12-30)
PROC: 3E03329 Introduction of Other Anti-infective into Peripheral Vein, Percutaneous Approach (ICD-10-PCS; principal; 2021-12-30 12:00)
PROC: B24BZZZ Ultrasonography of Heart with Aorta (ICD-10-PCS; 2022-01-07)
DX: T80.211A Bloodstream infection due to central venous catheter, initial encounter (principal); A41.02 Sepsis due to Methicillin resistant Staphylococcus aureus; R65.21 Severe sepsis with septic shock; R45.851 Suicidal ideations; J98.11 Atelectasis; K86.1 Other chronic pancreatitis; I82.B12 Acute embolism and thrombosis of left subclavian vein; I82.C12 Acute embolism and thrombosis of left internal jugular vein; I82.611 Acute embolism and thrombosis of superficial veins of right upper extremity; E44.0 Moderate protein-calorie malnutrition; I10 Essential (primary) hypertension; G40.909 Epilepsy, unspecified, not intractable, without status epilepticus; D50.9 Iron deficiency anemia, unspecified; F60.9 Personality disorder, unspecified; E86.0 Dehydration; R00.0 Tachycardia, unspecified; G89.4 Chronic pain syndrome; I16.0 Hypertensive urgency; E11.65 Type 2 diabetes mellitus with hyperglycemia; K59.09 Other constipation; E11.43 Type 2 diabetes mellitus with diabetic autonomic (poly)neuropathy; D63.8 Anemia in other chronic diseases classified elsewhere; F41.9 Anxiety disorder, unspecified; F32.A Depression, unspecified; R53.81 Other malaise; D70.9 Neutropenia, unspecified; I25.10 Atherosclerotic heart disease of native coronary artery without angina pectoris; R07.9 Chest pain, unspecified; K31.84 Gastroparesis; Y83.8 Other surgical procedures as the cause of abnormal reaction of the patient, or of later complication, without mention of misadventure at the time of the procedure; R77.8 Other specified abnormalities of plasma proteins; Z79.01 Long term (current) use of anticoagulants; Z90.710 Acquired absence of both cervix and uterus; Z88.8 Allergy status to other drugs, medicaments and biological substances; Z76.5 Malingerer [conscious simulation]; Z98.890 Other specified postprocedural states; Z91.14 Patient's other noncompliance with medication regimen; Z90.49 Acquired absence of other specified parts of digestive tract; Z79.4 Long term (current) use of insulin; Z93.1 Gastrostomy status; Z79.899 Other long term (current) drug therapy; I25.2 Old myocardial infarction; Z88.5 Allergy status to narcotic agent; Z80.0 Family history of malignant neoplasm of digestive organs
CPT/HCPCS: ECHO; 36415; 70450; 71045; 78452; 80048; 80053; 80202; 80307; 81001; 82550; 82553; 82962; 83605; 83735; 84100; 84484; 84703; 85025; 85027; 85610; 85652; 85730; 86140; 87040; 87070; 87077; 87086; 87186; 87205; 93005; 93017; 93306; 93971; 96374; 96375; 96376; 99285; A9502; C1751; C1769; C1788; G0378; J0360; J0696; J1170; J1200; J1650; J2060; J2543; J2550; J2704; J2785; J3370; J7040; J7050; J7070

== ENCOUNTER 2022-01-28 13:05 | Emergency (ER) | payer BC ==
[~2022-01-28 13:05] MED LIST changes: +BENADRYL A12.5 MG/5 GT; +LOVENOX120 MG/0.8 SQ; +ROXICODONE TAB 55 MG PO
[2022-01-28 18:15] LABS: HEMOGLOBIN 11.6 gm/dl (12.3-15.3); RED BLOOD COUNT 4.76 M/UL (4.00-5.10); WHITE BLOOD COUNT 7.6 K/UL (4.5-11.0)
[2022-01-28 18:35] LABS: BUN/CREATININE RATIO 21 (0-10)
== END 2022-01-28 22:33 | disposition home or self-care (01) ==
LOC: ER1 13:05
PROVIDERS: Student in an Organized Health Care Education/Training Program
DX: K94.23 Gastrostomy malfunction (principal); E11.43 Type 2 diabetes mellitus with diabetic autonomic (poly)neuropathy; K31.84 Gastroparesis; I50.9 Heart failure, unspecified; Z86.718 Personal history of other venous thrombosis and embolism
CPT/HCPCS: 43762; 74018; 80053; 83605; 85025; 96372; 96374; 96375; 99283; J1170; J2550; J3010; Q9963

== ENCOUNTER 2022-02-03 10:22 | Inpatient (IN) | payer BC ==
[~2022-02-03] VITALS: Ht 165.1 cm; Wt 78.0 kg
[2022-02-03 12:48] LABS: RED BLOOD COUNT 5.22 M/UL (4.00-5.10)
[2022-02-03 13:32] LABS: BUN/CREATININE RATIO 21 (0-10)
[2022-02-03] MEDS ORDERED: HYDROCODON-ACE1 EAC6 PO (17:14)
[2022-02-03] MEDS ORDERED: TIZANIDINE HCL6 MG PO (17:15)
[2022-02-03] MEDS ORDERED: PROMETHAZINE HC50 MG PR (17:15)
[2022-02-03] MEDS ORDERED: ENOXAPARIN120 MG/0.8 SQ (17:16)
[2022-02-03] MEDS ORDERED: LACTULOSE20 GM/30 M PO (17:17)
[2022-02-03] MEDS ORDERED: BASAGLAR K100 UNIT/1 SQ (17:17)
[2022-02-03] MEDS ORDERED: PROTONIX 40 MG40 M1 PO (17:18)
[2022-02-04 05:45] LABS: HEMOGLOBIN 9.6 gm/dl (12.3-15.3); RED BLOOD COUNT 3.92 M/UL (4.00-5.10); WHITE BLOOD COUNT 9.3 K/UL (4.5-11.0)
[2022-02-04 06:02] LABS: BUN/CREATININE RATIO 22 (0-10)
[2022-02-05 05:27] LABS: HEMOGLOBIN 10.1 gm/dl (12.3-15.3); RED BLOOD COUNT 4.16 M/UL (4.00-5.10); WHITE BLOOD COUNT 8.9 K/UL (4.5-11.0)
[2022-02-05 05:39] LABS: BUN/CREATININE RATIO 7 (0-10)
[2022-02-06 03:23] LABS: RED BLOOD COUNT 3.29 M/UL (4.00-5.10); WHITE BLOOD COUNT 5.4 K/UL (4.5-11.0)
[2022-02-06 04:59] LABS: BUN/CREATININE RATIO 15 (0-10)
[2022-02-07 06:53] LABS: HEMOGLOBIN 8.2 gm/dl (12.3-15.3); RED BLOOD COUNT 3.4 M/UL (4.00-5.10); WHITE BLOOD COUNT 4.7 K/UL (4.5-11.0)
[2022-02-07 07:15] LABS: BUN/CREATININE RATIO 13 (0-10)
[2022-02-08 03:40] LABS: HEMOGLOBIN 9.2 gm/dl (12.3-15.3); WHITE BLOOD COUNT 5.6 K/UL (4.5-11.0)
[2022-02-08 04:00] LABS: RED BLOOD COUNT 3.79 M/UL (4.00-5.10)
[2022-02-08 04:20] LABS: BUN/CREATININE RATIO 10 (0-10)
--- NOTE | 2022-02-08 17:26 | NUR ---
ATTEMPTED TO CHANGE DRESSING ON CENTRAL LINE, PT REFUSED. PT VERBALIZED UNDERSTANDING OF RISK AND BENEFITS OF NOT HAVING DRESSING REMOVED.
[2022-02-08 23:11] LABS: IMMUNOGLOBULIN G, QN, SERUM 876 mg/dL (586-1602)
[2022-02-11 02:47] LABS: BUN/CREATININE RATIO 15 (0-10)
[2022-02-12] MEDS ORDERED: MYCOSTATIN100000 UTS PO (15:11)
== END 2022-02-12 16:04 | disposition home or self-care (01) | DRG 439 ==
LOC: ER1 10:22 → M/S 16:47 → CDU 16:47 → CCU 02-04 00:55 → PROG CARE 02-05 01:32 → M/S 02-06 22:37
PROVIDERS: Internal Medicine; Internal Medicine Pulmonary Disease; Physician Assistant; ADMIT Internal Medicine
PROC: B548ZZA Ultrasonography of Superior Vena Cava, Guidance (ICD-10-PCS; principal; 2022-02-03)
PROC: 02HV33Z Insertion of Infusion Device into Superior Vena Cava, Percutaneous Approach (ICD-10-PCS; principal; 2022-02-03)
PROC: 3E043XZ Introduction of Vasopressor into Central Vein, Percutaneous Approach (ICD-10-PCS; 2022-02-03)
DX: K85.90 Acute pancreatitis without necrosis or infection, unspecified (principal); E87.1 Hypo-osmolality and hyponatremia; R57.9 Shock, unspecified; I13.0 Hypertensive heart and chronic kidney disease with heart failure and stage 1 through stage 4 chronic kidney disease, or unspecified chronic kidney disease; A09 Infectious gastroenteritis and colitis, unspecified; F41.9 Anxiety disorder, unspecified; E10.43 Type 1 diabetes mellitus with diabetic autonomic (poly)neuropathy; N18.9 Chronic kidney disease, unspecified; I50.9 Heart failure, unspecified; D50.9 Iron deficiency anemia, unspecified; G40.909 Epilepsy, unspecified, not intractable, without status epilepticus; K31.84 Gastroparesis; E78.5 Hyperlipidemia, unspecified; D64.9 Anemia, unspecified; E87.6 Hypokalemia; E10.22 Type 1 diabetes mellitus with diabetic chronic kidney disease; R00.0 Tachycardia, unspecified; Z90.710 Acquired absence of both cervix and uterus; Z79.4 Long term (current) use of insulin; Z88.5 Allergy status to narcotic agent; Z88.8 Allergy status to other drugs, medicaments and biological substances; Z79.899 Other long term (current) drug therapy; Z88.6 Allergy status to analgesic agent; Z93.1 Gastrostomy status; Z98.890 Other specified postprocedural states; Z80.8 Family history of malignant neoplasm of other organs or systems; Z86.718 Personal history of other venous thrombosis and embolism
CPT/HCPCS: 36415; 71045; 80048; 80053; 80061; 81001; 82150; 82550; 82553; 82784; 82787; 82962; 83036; 83540; 83550; 83605; 83690; 83735; 83880; 84100; 84132; 84484; 85025; 85027; 85384; 85610; 85730; 86140; 87040; 87086; 93005; 96374; 96375; 99285; C9113; J0360; J1170; J1200; J1650; J1956; J2185; J2250; J2550; J3475; J3480

== ENCOUNTER 2022-02-21 09:18 | Emergency (ER) | payer BC ==
[~2022-02-21 09:18] MED LIST changes: +ENOXAPARIN120 MG/0.8 SQ; +HYDROCODON-ACE1 EAC6 PO; +PROMETHAZINE HC50 MG PR
[2022-02-21 11:02] LABS: HEMOGLOBIN 11.1 gm/dl (12.3-15.3); RED BLOOD COUNT 4.68 M/UL (4.00-5.10); WHITE BLOOD COUNT 9.6 K/UL (4.5-11.0)
[2022-02-21 11:36] LABS: BUN/CREATININE RATIO 30 (0-10)
== END 2022-02-21 13:26 | disposition home or self-care (01) ==
LOC: ER1 09:18
PROVIDERS: Physician Assistant
DX: K59.00 Constipation, unspecified (principal); E11.43 Type 2 diabetes mellitus with diabetic autonomic (poly)neuropathy; K31.84 Gastroparesis; Z88.8 Allergy status to other drugs, medicaments and biological substances; Z91.041 Radiographic dye allergy status; Z88.6 Allergy status to analgesic agent; Z88.5 Allergy status to narcotic agent
CPT/HCPCS: 80053; 82550; 82553; 83690; 84484; 85025; 99284; J1200; J2405; J2550

== ENCOUNTER 2022-02-23 04:13 | Emergency (ER) | payer BC ==
[2022-02-23 09:02] LABS: HEMOGLOBIN 10.8 gm/dl (12.3-15.3); RED BLOOD COUNT 4.77 M/UL (4.00-5.10); WHITE BLOOD COUNT 11.7 K/UL (4.5-11.0)
[2022-02-23 09:29] LABS: BUN/CREATININE RATIO 38 (0-10)
== END 2022-02-23 12:25 | disposition home or self-care (01) ==
LOC: ER1 04:13
PROVIDERS: Emergency Medicine
DX: R07.9 Chest pain, unspecified (principal); R11.0 Nausea; R77.8 Other specified abnormalities of plasma proteins
CPT/HCPCS: 71045; 80053; 81001; 82009; 82550; 82553; 83605; 83735; 84100; 84484; 85025; 87040; 93005; 99285; J2405